=== PATIENT | male | born 1935 ===

== ENCOUNTER 2016-06-16 06:17 | Day surgery (SDC) | payer MEDICARE, OTHER ==
[2016-06-11 11:56] VITALS: BMI 21.6
[2016-06-16] MEDS ORDERED: Iodixanol 320 MG/ML 100 ML BOTTLE IV ONE (06:28)
[2016-06-16] MEDS ORDERED: Lidocaine 2% Inj (20ml) ONE (06:28)
[2016-06-16] MEDS ORDERED: Phenylephrine 10 mg/ml Inj ONE (06:28)
[2016-06-16] MEDS ORDERED: Iohexol 350mgl/ml 50 ML ONE (06:28)
[2016-06-16] MEDS ORDERED: Nitroglycerin 50mg in D5W 0 ML IV ONE (06:29)
[2016-06-16] MEDS ORDERED: Iodixanol 320 MG/ML 200 ML BOTTLE IV ONE (06:29)
[2016-06-16 06:43] LABS: ADD MANUAL DIFF? NO
[2016-06-16 06:57] LABS: BLOOD UREA NITROGEN 23 mg/dL (7-21); CALCIUM 9.6 mg/dL (8.4-10.5); CARBON DIOXIDE 28 mmol/L (21-33); CHLORIDE 105 mmol/L (98-107); GFR AFRICAN-AMERICAN > 60; GLUCOSE,RANDOM 102 mg/dL (70-110); POTASSIUM 4.6 mmol/L (3.6-5.0); SODIUM 142 mmol/L (132-148)
[2016-06-16 07:09] LABS: BASO # 0.02 K/mm3 (0.0-2.0); BASO % 0.3 % (0.0-3.0); EOS # 0.5 (0.0-0.7); EOS % 6.8 % (1.5-5.0); GRAN # 5.46 (1.4-6.5); GRAN % 68.6 % (50.0-68.0); HEMATOCRIT 40.7 % (42.0-52.0); LYMPH # 1.5 (1.2-3.4); LYMPH % 18.9 % (22.0-35.0); MEAN CELL VOLUME 90.4 fL (80.0-105.0); MEAN CORPUSCULAR HGB CONC 33.2 g/dl (31.0-37.0); MEAN PLATELET VOLUME 10.5 fl (7.0-11.0); MONO # 0.4 (0.1-0.6); MONO % 5.4 % (1.0-6.0); PLATELET COUNT 248 10^3/uL (120.0-450.0); RED CELL DISTRIBUTION WIDTH 14.5 % (11.5-14.5)
[2016-06-16 07:19] LABS: INR 0.91 (0.93-1.08); PARTIAL THROMBOPLASTIN TIME 26.7 Seconds (23.7-30.8)
[2016-06-16] MEDS ORDERED: Midazolam 2 MG/2 ML VIAL ONE (07:36)
[2016-06-16] MEDS ORDERED: Adenosine 90 mg/30mL IV ONE (08:15)
[2016-06-16] MEDS ORDERED: Sodium Chloride 0.9% 1,000 ML IV SCH (08:45)
--- NOTE | 2016-06-16 12:01 | CARDCATH ---
PROCEDURE DATE: 06/16/2016 HISTORY: The patient is a 80-year-old male with a history of recurrent small-bowel obstructions terence martha medically, who also suffers from hypertension and diabetes mellitus. The patient has a documented 60% lesion in his RCA in the past. He presents with an abnormal stress test. Because of this, a cardiac catheterization was recommended. PROCEDURE: Left heart catheterization with coronary angiography, left ventriculogram and FFR. The right femoral artery was cannulated with a 6-Turkmen sheath. There were no complications. The findings on catheterization revealed a left ventricle that was mildly hypokinetic. Estimated eje ction fraction is approximately 50%. His coronary anatomy revealed a right dominant circulation. The RCA revealed a 60% stenosis in the mid portion. The left main artery was unremarkable. The LAD and diagonal vessels revealed diffuse atherosclerosis with an eccentric 50% to 60% stenoses i n the mid portion. The circumflex artery revealed intimal irregularities throughout its course. There was an 80% stenos es at the ostium of a branch of the inferior branch of the first obtuse marginal branch. The patient was started on intravenous Angiomax. FFR was performed in the RCA lesion. The FFR was 0.94. No intervention was performed. Angio-Seal was used to close the femoral artery site. The patient tolerated the procedure well. In summary, the procedure revealed borderline critical lesions in the RCA and LAD with an ostial lesi on of the inferior branch of the obtuse marginal branch which is a distal vessel. Given these findings, the patient's coronary artery disease will be treated medically. A cardiac ris k reduction program has been spoken to the patient and his in detail. Followup and instructions have been given to the patient. Enrique Batres MD cc: [facility] TT: 06/16/2016 12:00:58 remington
[2016-06-17 15:57] VITALS: TEMP 97.4
[2016-06-17 16:02] VITALS: BP 139/70; PULSE 64; RESP 18; O2SAT 99
== END 2016-06-16 15:25 | disposition home or self-care (01) ==
LOC: CATH 06:17
PROVIDERS: ATTEND Internal Medicine Cardiovascular Disease
DX: I25.10 Atherosclerotic heart disease of native coronary artery without angina pectoris (principal); I10 Essential (primary) hypertension; E11.9 Type 2 diabetes mellitus without complications; Z79.84 Long term (current) use of oral hypoglycemic drugs
CPT/HCPCS: 36415; 80048; 85025; 85610; 85730; 86850; 86900; 93458; 93571; 99152; 99153; C1760; C1769 ×2; C1887; C2629; J0153; J0583; J1644; J2250; J3010; J7030; J7040

== ENCOUNTER 2016-08-19 06:13 | Observation (INO) | payer MEDICARE, OTHER ==
[2016-08-19] MEDS ORDERED: Morphine 4 mg/ml ISec IVP STA (07:14)
[2016-08-19] MEDS ORDERED: Sodium Chloride 0.9% 500 ML IV STA (07:14)
--- NOTE | 2016-08-19 07:17 | ED PDOC ---
Arrival/HPI - General Chief Complaint: Abdominal Pain Time Seen by Provider: 08/19/16 07:03 Historian: Patient - History of Present Illness Narrative History of Present Illness (Text): 08/19/16 07:05 A 81 year old male, whose past medical history includes multiple small bowel obstructions, appendectomy, and cholecystectomy, presents to the emergency department complaining of corrine-umbilical abdominal pain that began 4 hours ago. Patient notes pain is similar to previous episodes of small bowel obstruction and is associated with nausea and one episode of non bloody non bilious vomiting. He denies any urinary/bowel changes, fever, chest pain, shortness of breath, or any other complaints at this time. PMD: Dr. Cha Time/Duration: 4-6 hours Symptom Onset: Sudden Symptom Course: Unchanged Quality: Other Activities at Onset: Rest Context: Home Associated Symptoms (Text): nausea and vomiting Past Medical History - Provider Review Nursing Documentation Reviewed: Yes - Infectious Disease Hx of Infectious Diseases: None - Tetanus Immunization Tetanus Immunization: Unknown - Reproductive Currently : No - Cardiac Hx Pacemaker: No - Pulmonary Hx Respiratory Disorders: No - Neurological Hx Paralysis: No - HEENT Hx HEENT Disorder: Yes (WEARS RX GLASSES FOR READING) Hx Cataracts: Yes (BILATERAL SURGERY) - Renal Hx Renal Disorder: No - Endocrine/Metabolic Hx Diabetes Mellitus Type 2: Yes - Hematological/Oncological Hx Blood Transfusions: No Hx Blood Transfusion Reaction: No - Integumentary Hx Dermatological Disorder: No - Musculoskeletal/Rheumatological Hx Musculoskeletal Disorders: Yes (SCIATICA) - Gastrointestinal Hx Gastrointestinal Disorders: Yes (APPENDECTOMY(RUPTURED APPENDIX)) Hx Gall Bladder Disease: Yes (CHOLELITHIASIS) Other/Comment: Bowel obstruction - Genitourinary/Gynecological Hx Genitourinary Disorders: Yes Hx Prostate Problems: Yes - Psychiatric Hx Emotional Abuse: No Hx Physical Abuse: No Hx Substance Use: No - Past Surgical History Past Surgical History: No Previous - Surgical History Hx Appendectomy: Yes Hx Cholecystectomy: Yes - Anesthesia Hx Anesthesia Reactions: No Hx Malignant Hyperthermia: No - Suicidal Assessment Feels Threatened In Home Enviroment: No Family/Social History - Physician Review Nursing Documentation Reviewed: Yes Family/Social History: Unknown Family HX Smoking Status: Never Smoked Hx Alcohol Use: Yes (RED WINE AFTER DINNER) Hx Substance Use: No Hx Substance Use Treatment: No Allergies/Home Meds Allergies/Adverse Reactions: Allergies No Known Allergies Allergy (Verified 05/24/16 03:24) Home Medications: Home Meds Medication Instructions Recorded Confirmed Valsartan [Diovan] 40 mg PO DAILY 02/19/16 08/19/16 metFORMIN [glucOPHAGE] 500 mg PO DAILY 02/19/16 08/19/16 Aspirin [Ecotrin] 81 mg PO DAILY 06/11/16 08/19/16 Review of Systems - Review of Systems Constitutional: absent: Fevers ENT: absent: Rhinorrhea Respiratory: absent: SOB, Cough Cardiovascular: absent: Chest Pain Gastrointestinal: Abdominal Pain, Nausea, Vomiting. absent: Stool Changes, Constipation, Diarrhea, Hematochezia Genitourinary Male: absent: Dysuria, Frequency, Hematuria, Urinary Output Changes Musculoskeletal: absent: Back Pain, Neck Pain Skin: absent: Rash Neurological: absent: Headache Endocrine: absent: Polyuria Psychiatric: absent: Depression Physical Exam Vital Signs Reviewed: Yes Vital Signs Temp Pulse Resp BP Pulse Ox 08/19/16 11:20 59 L 16 164/92 H 100 08/19/16 08:30 60 16 160/70 H 97 08/19/16 06:22 97.8 F 61 16 170/78 H 100 Temperature: Afebrile Blood Pressure: Hypertensive Pulse: Regular Respiratory Rate: Normal Appearance: Positive for: Well-Appearing, Non-Toxic, Comfortable Pain Distress: None Mental Status: Positive for: Alert and Oriented X 3 - Systems Exam Head: Present: Atraumatic, Normocephalic Pupils: Present: PERRL Extroacular Muscles: Present: EOMI Conjunctiva: Present: Normal Mouth: Present: Moist Mucous Membranes Neck: Present: Normal Range of Motion Respiratory/Chest: Present: Clear to Auscultation, Good Air Exchange. No: Respiratory Distress, Accessory Muscle Use Cardiovascular: Present: Regular Rate and Rhythm, Normal S1, S2. No: Murmurs Abdomen: Present: Normal Bowel Sounds. No: Tenderness, Distention, Peritoneal Signs, Rebound, Guarding Back: No: CVA Tenderness Upper Extremity: Present: Normal Inspection. No: Cyanosis, Edema Lower Extremity: Present: Normal Inspection. No: Edema Neurological: Present: GCS=15, CN II-XII Intact, Speech Normal Skin: Present: Warm, Dry, Normal Color. No: Rashes Psychiatric: Present: Alert, Oriented x 3, Normal Insight, Normal Concentration Medical Decision Making ED Course and Treatment: 08/19/16 07:05 Impression: A 81 year old male with abdominal pain. Differential Diagnosis include but are not limited to: Small bowel obstruction vs. Pancreatitis vs. Gastritis Plan: -- Abdomen/Pelvis CT -- Labs -- Urinalysis -- Morphine, Zofran and IV Fluids -- Reassess and disposition Prior Visits: Notes and results from previous visits were reviewed. The patient last presented to the emergency department on 05/24/16 for evaluation of abdominal pain. Progress Notes: EKG: Ordered, reviewed, and independently interpreted the EKG. Rate : 61 BPM Rhythm : NSR Interpretation : Normal intervals, No ST/T changes 08/19/16 07:19 08/19/16 12:39 CT as above. Spoke to Dr. Cha. Due to CT results, elevated wbc, and abdominal pain, recommend med/sx observation with for IV antibiotics with GI and ID consult. - Lab Interpretations I have reviewed the lab results: Yes - Medication Orders Current Medication Orders: Ciprofloxacin (Cipro 400mg/200ml Dsw) 400 mg in 200 mls @ 133.3 mls/hr IVPB STAT STA PRN Reason: Protocol Stop: 08/19/16 13:57 Metronidazole (Flagyl) 500 mg in 100 mls @ 100 mls/hr IVPB STAT STA PRN Reason: Protocol Stop: 08/19/16 13:26 Discontinued Medications Sodium Chloride (Sodium Chloride 0.9%) 500 mls @ 999 mls/hr IV .Q31M STA Stop: 08/19/16 07:44 Last Admin: 08/19/16 07:46 Dose: 999 mls/hr Iohexol (Omnipaque 240 (50 Ml)) Confirm Administered Dose 50 ml .ROUTE .STK-MED ONE Stop: 08/19/16 07:28 Iohexol (Omnipaque 350 100 Ml) Confirm Administered Dose 350 mg .ROUTE .STK-MED ONE Stop: 08/19/16 09:12 Morphine Sulfate (Morphine) 4 mg IVP STAT STA Stop: 08/19/16 07:15 Last Admin: 08/19/16 07:47 Dose: 4 mg Re-Assess: JO ANN Pain Assessment Document 08/19/16 08:47 MD (Rec: 08/19/16 09:24 [id number]) Pain Reassessment Is this a pain reassessment? Yes Sleep Is patient sleeping during reassessment? No Presence of Pain Presence of Pain No Ondansetron HCl (Zofran Inj) 4 mg IVP STAT STA Stop: 08/19/16 07:15 Last Admin: 08/19/16 07:47 Dose: 4 mg ED OBSERVATION Date of observation admission: 08/19/16 Time of observation admission: 07:10 - Observation admission statement Patient is being placed in observation because:: abdominal pain, need CT scan - Goals of Observation Goals of observation are:: pain management and obtain series of abdominal examinations - Progress Note Progress Note: 08/19/16 07:10 EKG: Ordered, reviewed, and independently interpreted the EKG. Rate : 61 BPM Rhythm : NSR Interpretation : Normal intervals, No ST/T changes 08/19/16 08:15 On reevaluation, the patient is sitting up in bed drinking contrast. 08/19/16 10:10 On reevaluation, the patient is resting and is in no acute distress at this time. Abdomen remain soft and non tender. 08/19/16 12:00 On reevaluation, the patient is resting comfortably, awaiting CT results. 08/19/16 12:20 Abdomen/Pelvis CT: Creator : Smith Hurt MD COMPARISON: Comparison made with CT scan abdomen and pelvis 05/24/2016 FINDINGS: LOWER THORAX: Atelectatic and scarring changes both lung bases right greater than left including the lingular and middle lobe regions. No effusion. No evidence of basilar pneumothorax. Heart is enlarged. No significant pericardial effusion. Hiatal hernia. Minor wall thickening of the distal esophagus that likely due to protrusion of gastric mucosa. Possibility of esophagitis not excluded. Small LIVER: Mild central intrahepatic biliary ductal dilatation likely due to some combination of cholecystectomy and advanced age. Mild fatty hepatic infiltration. Portal and splenic veins are opacified. GALLBLADDER AND BILE DUCTS: Status post cholecystectomy with moderate dilatation (just over 13 mm) of the common bile duct. CBD dilatation is likely in part due to a combination of cholecystectomy and advanced age however MRCP could be performed for further evaluation as to evaluate the distal common bile duct, Ampulla of Vater and pancreatic head region PANCREAS: There is dilatation of the pancreatic duct . No discrete pancreatic mass lesion is identified however follow-up MRCP is recommended due to evaluate the distal common bile duct, pancreatic head and Ampulla of Vater. SPLEEN: The spleen exhibits normal size and attenuation pattern. There is a tiny approximately 3.5-4 mm nonspecific low-attenuation focus at inferior aspect of the splenic parenchyma too small characterize. . ADRENALS: Mild adrenal hyperplasia. KIDNEYS AND URETERS: The kidneys exhibit relatively symmetric nephrograms. No evidence of nephrolithiasis. Prominent bilateral extrarenal pelves and proximal ureters though both ureters taper rapidly to a normal caliber. BLADDER: Urinary bladder is moderate to significantly distended. Mild wall thickening on may in part be due to muscular hypertrophy. Other intrinsic/ invasive wall lesion less likely. Rule out chronic outlet obstruction due to enlarged prostate gland. REPRODUCTIVE: Prostate gland appears enlarged likely due to benign prostatic hypertrophy however correlation with PSA to exclude prostate carcinoma. . APPENDIX: Appendix is not seen with complete certainty however no obvious inflammatory changes right lower quadrant of the abdomen. There is moderate amount of stool seen throughout the entire colon consistent with fecal retention / constipation. BOWEL: Evaluation of the bowel is limited due to incomplete opacification. The stomach is distended with oral contrast material and air. . . There are nonspecific wall thickening changes of a loop of jejunum right mid abdomen associated mild distension of bone 1 2 loops of proximal small of bowel of uncertain etiology; rule out out localized enteritis. Other intrinsic/invasive wall lesion cannot be excluded. Clinical correlation recommended.. No evidence of complete acute mechanical small bowel obstruction however there as there is a small amount of oral contrast material seen opacifying the proximal cecum. The appendix is not seen with complete certainty. Mild wall thickening of the sigmoid at colon to the level of the rectosigmoid junction which may in part be secondary to underdistention and peristalsis is well as adherent under opacified bowel however possibility of mild nonspecific inflammatory process cannot be excluded. Clinical correlation recommended. PERITONEUM: No evidence of free intraperitoneal air. No free or loculated fluid collections. Air. LYMPH NODES: There appears to be a few small nonspecific retroperitoneal lymph nodes. VASCULATURE: Unremarkable. No aortic aneurysm. BONES: Multilevel degenerative spondylosis of the lower thoracic and lumbar spine. Bilateral spondylolysis L5 level with less than grade 1 spondylolisthesis at the L5-S1 level. . No acute compression fractures no retropulsed fragments. OTHER FINDINGS: None. IMPRESSION: Findings consistent with nonspecific enteritis at involving the the jejunum of with luminal narrowing though there is no evidence of complete obstruction. In addition, there is also mild wall thickening of the sigmoid colon which may in part be secondary to some combination of incomplete distention, as peristalsis and adherent under opacified bowel however nonspecific inflammatory process involving the colon should also be excluded. Mild constipation. Enlarged prostate gland with moderately distended urinary bladder. Rule out bladder outlet obstruction. Correlation with PSA recommended to exclude prostatic carcinoma. Status post cholecystectomy with moderate dilatation of the common bile duct. There is also dilatation of the pancreatic duct. No definitive pancreatic mass lesion seen however followup MRCP is recommended to evaluate the distal common bile duct, pancreatic head and Ampulla of Vater. There is also mild intrahepatic biliary ductal dilatation. Mild fatty hepatic infiltration. Tiny sub cm low-attenuation focus inferior aspect of the splenic parenchyma too small to characterize. Adrenal hyperplasia felt to be present. Bilateral spondylolysis L5 segment with less than grade 1 spondylolisthesis See above discussion for additional findings and details. - Scribe Statement The provider has reviewed the documentation as recorded by the Mercyibe Cruz Pitts Provider Scribe Attestation: All medical record entries made by the Mercyibkelsi were at my direction and personally dictated by me. I have reviewed the chart and agree that the record accurately reflects my personal performance of the history, physical exam, medical decision making, and the department course for this patient. I have also personally directed, reviewed, and agree with the discharge instructions and disposition. Disposition/Present on Arrival - Present on Arrival Any Indicators Present on Arrival: No History of DVT/PE: No History of Uncontrolled Diabetes: No Urinary Catheter: No History of Decub. Ulcer: No History Surgical Site Infection Following: None - Disposition Have Diagnosis and Disposition been Completed?: Yes Diagnosis: Abdominal pain, Enteritis, Colitis Disposition: HOSPITALIZED Disposition Time: 07:10 Patient Plan: Observation Condition: FAIR
[2016-08-19] MEDS ORDERED: Iohexol 240 (50 ml) ONE (07:27)
[2016-08-19 07:49] LABS: VENOUS BLOOD GAS BASE EXCESS 1.1 mmol/L (0.0-2.0); VENOUS BLOOD PH 7.44 (7.32-7.43)
[2016-08-19 07:50] LABS: BASO # 0.01 K/mm3 (0.0-2.0); BASO % 0.1 % (0.0-3.0); EOS # 0.1 (0.0-0.7); EOS % 0.4 % (1.5-5.0); GRAN # 12.78 (1.4-6.5); GRAN % 91.2 % (50.0-68.0); HEMATOCRIT 38.5 % (42.0-52.0); LYMPH # 0.8 (1.2-3.4); LYMPH % 5.9 % (22.0-35.0); MEAN CELL VOLUME 90.8 fL (80.0-105.0); MEAN PLATELET VOLUME 10.6 fl (7.0-11.0); MONO # 0.3 (0.1-0.6); MONO % 2.4 % (1.0-6.0); PLATELET COUNT 219 10^3/uL (120.0-450.0); RED CELL DISTRIBUTION WIDTH 14.3 % (11.5-14.5)
[2016-08-19 07:52] LABS: ADD MANUAL DIFF? NO
[2016-08-19 08:14] LABS: ALB/GLOB RATIO 1.1 (1.1-1.8); ALKALINE PHOSPHATASE 37 U/L (38-133); ALT/SGPT 31 U/L (7-56); AST/SGOT 34 U/L (15-59); BILIRUBIN,TOTAL 0.5 mg/dL (0.2-1.3); BLOOD UREA NITROGEN 29 mg/dL (7-21); CALCIUM 8.7 mg/dL (8.4-10.5); CARBON DIOXIDE 24 mmol/L (21-33); CHLORIDE 109 mmol/L (98-107); GFR AFRICAN-AMERICAN > 60; GLUCOSE,RANDOM 125 mg/dL (70-110); LIPASE 219 U/L (23-300); POTASSIUM 4.4 mmol/L (3.6-5.0); SODIUM 138 mmol/L (132-148); TOTAL PROTEIN 6.6 g/dL (5.8-8.3)
[2016-08-19] MEDS ORDERED: Iohexol 350 MG/100 ML VIAL ONE (09:11)
[2016-08-19 11:42] LABS: URINE BILIRUBIN NEGATIVE (NEGATIVE); URINE BLOOD NEGATIVE (NEGATIVE); URINE GLUCOSE (UA) NEGATIVE (NEGATIVE); URINE KETONE NEGATIVE (NEGATIVE); URINE LEUKOCYTE ESTERASE NEGATIVE Leu/uL (NEGATIVE); URINE PROTEIN 100 mg/dL (<30 mg/dL); URINE UROBILINOGEN 0.2 E.U./dL (<1 E.U./dL)
[2016-08-19 11:47] LABS: URINE APPEARANCE CLEAR (CLEAR); URINE COLOR YELLOW (YELLOW)
[2016-08-19 12:13] LABS: URINE BACTERIA TRACE (NEG); URINE EPITHELIAL CELLS 0 - 2 /hpf (0-5); URINE RBC 0 - 2 /hpf (0-2); URINE WBC 0 - 2 /hpf (0-6)
--- NOTE | 2016-08-19 12:20 | CT ---
PROCEDURE: CT abdomen and pelvis dated 08/19/2016 HISTORY: abdominal pain, hx of SBO COMPARISON: Comparison made with CT scan abdomen and pelvis 05/24/2016 TECHNIQUE: Contiguous axial images of the abdomen and pe pelvis performed following oral and intravenous injection of approximately 100 cc of Omnipaque 350 contrast material. Coronal and Sagittal reformats generated. Radiation dose: Total exam DLP = 247.81 mGy-cm. This CT exam was performed using one or more of the following dose reduction techniques: Automated exposure control, adjustment of the mA and/or kV according to patient size, and/or use of iterative reconstruction technique. FINDINGS: LOWER THORAX: Atelectatic and scarring changes both lung bases right greater than left including the lingular and middle lobe regions. No effusion. No evidence of basilar pneumothorax. Heart is enlarged. No significant pericardial effusion. Hiatal hernia. Minor wall thickening of the distal esophagus that likely due to protrusion of gastric mucosa. Possibility of esophagitis not excluded. Small LIVER: Mild central intrahepatic biliary ductal dilatation likely due to some combination of cholecystectomy and advanced age. Mild fatty hepatic infiltration. Portal and splenic veins are opacified. GALLBLADDER AND BILE DUCTS: Status post cholecystectomy with moderate dilatation (just over 13 mm) of the common bile duct. CBD dilatation is likely in part due to a combination of cholecystectomy and advanced age however MRCP could be performed for further evaluation as to evaluate the distal common bile duct, Ampulla of Vater and pancreatic head region PANCREAS: There is dilatation of the pancreatic duct . No discrete pancreatic mass lesion is identified however follow-up MRCP is recommended due to evaluate the distal common bile duct, pancreatic head and Ampulla of Vater. SPLEEN: The spleen exhibits normal size and attenuation pattern. There is a tiny approximately 3.5-4 mm nonspecific low-attenuation focus at inferior aspect of the splenic parenchyma too small characterize. . ADRENALS: Mild adrenal hyperplasia. KIDNEYS AND URETERS: The kidneys exhibit relatively symmetric nephrograms. No evidence of nephrolithiasis. Prominent bilateral extrarenal pelves and proximal ureters though both ureters taper rapidly to a normal caliber. BLADDER: Urinary bladder is moderate to significantly distended. Mild wall thickening on may in part be due to muscular hypertrophy. Other intrinsic/invasive wall lesion less likely. Rule out chronic outlet obstruction due to enlarged prostate gland. REPRODUCTIVE: Prostate gland appears enlarged likely due to benign prostatic hypertrophy however correlation with PSA to exclude prostate carcinoma. . APPENDIX: Appendix is not seen with complete certainty however no obvious inflammatory changes right lower quadrant of the abdomen. There is moderate amount of stool seen throughout the entire colon consistent with fecal retention/ constipation. BOWEL: Evaluation of the bowel is limited due to incomplete opacification. The stomach is distended with oral contrast material and air. . . There are nonspecific wall thickening changes of a loop of jejunum right mid abdomen associated mild distension of bone 1 2 loops of proximal small of bowel of uncertain etiology; rule out out localized enteritis. Other intrinsic/invasive wall lesion cannot be excluded. Clinical correlation recommended.. No evidence of complete acute mechanical small bowel obstruction however there as there is a small amount of oral contrast material seen opacifying the proximal cecum. The appendix is not seen with complete certainty. Mild wall thickening of the sigmoid at colon to the level of the rectosigmoid junction which may in part be secondary to underdistention and peristalsis is well as adherent under opacified bowel however possibility of mild nonspecific inflammatory process cannot be excluded. Clinical correlation recommended. PERITONEUM: No evidence of free intraperitoneal air. No free or loculated fluid collections. Air. LYMPH NODES: There appears to be a few small nonspecific retroperitoneal lymph nodes. VASCULATURE: Unremarkable. No aortic aneurysm. BONES: Multilevel degenerative spondylosis of the lower thoracic and lumbar spine. Bilateral spondylolysis L5 level with less than grade 1 spondylolisthesis at the L5-S1 level. . No acute compression fractures no retropulsed fragments. OTHER FINDINGS: None. IMPRESSION: Findings consistent with nonspecific enteritis at involving the the jejunum of with luminal narrowing though there is no evidence of complete obstruction. In addition, there is also mild wall thickening of the sigmoid colon which may in part be secondary to some combination of incomplete distention, as peristalsis and adherent under opacified bowel however nonspecific inflammatory process involving the colon should also be excluded. Mild constipation. Enlarged prostate gland with moderately distended urinary bladder. Rule out bladder outlet obstruction. Correlation with PSA recommended to exclude prostatic carcinoma. Status post cholecystectomy with moderate dilatation of the common bile duct. There is also dilatation of the pancreatic duct. No definitive pancreatic mass lesion seen however followup MRCP is recommended to evaluate the distal common bile duct, pancreatic head and Ampulla of Vater. There is also mild intrahepatic biliary ductal dilatation. Mild fatty hepatic infiltration. Tiny sub cm low-attenuation focus inferior aspect of the splenic parenchyma too small to characterize. Adrenal hyperplasia felt to be present. Bilateral spondylolysis L5 segment with less than grade 1 spondylolisthesis See above discussion for additional findings and details.
[2016-08-19] MEDS ORDERED: metroNIDAZOLE IV 500 mg/100 ml 500 MG/100 ML BAG IVPB STA (12:27)
[2016-08-19] MEDS ORDERED: Ciprofloxacin 400mg/200ml D5W 400 MG/200 ML BAG IVPB STA (12:27)
[2016-08-19] MEDS: Sodium Chloride 0.45% 1,000 ML IV SCH (14:07)
--- NOTE | 2016-08-19 15:44 | CP.PCM.CON ---
<Kendall Soares - Last Filed: 08/20/16 12:12> History of Present Illness - History of Present Illness History of Present Illness: PGY4 GI Fellow Consult Note Patient is a 81yo male with PMHx significant for multiple SBO, TIA, CAD (RCA 60 % stenotic on medical management), GERD, DM, HTN who presented to the ED with one day of abdominal pain. The patient has a history of multiple small bowel obstructions over the past two years, treated coservatively as he has been deemed a poor surgical candidate due to his CAD. Patient states he first noticed diffuse/corrine-umbilical cramping abdominal pain last night. He was able to sleep through the evening and went to work this morning without issue. At work, pain intensified and he called his to pick him up and bring him to the ED as he was concerned for recurrent SBO. He denies any change in bowel habits and passed a normal BM yesterday. Passing flatus at present. Denies any nausea, vomiting, weight loss, hematochezia, melena. PMHx: See HPI PSHx: Appendectomy, cholecystectomy FHx: Discussed with patient and denies any significant family history Social: Denies tobacco or illicit drug use; 1 glass red wine daily Endo: No prior evaluations Review of Systems - Constitutional Constitutional: absent: Anorexia, Chills, Fever - EENT Eyes: absent: Change in Vision Nose/Mouth/Throat: absent: Sore Throat - Cardiovascular Cardiovascular: absent: Chest Pain, Dyspnea, Dyspnea on Exertion - Respiratory Respiratory: absent: Cough, Dyspnea, Excessive Mucous Production - Gastrointestinal Gastrointestinal: Abdominal Pain, Bloating, Cramping. absent: Constipation, Diarrhea, Dyspepsia, Early Satiety, Heartburn, Hematemesis, Hematochezia, Loose Stools, Melena, Nausea, Vomiting - Genitourinary Genitourinary: absent: Dysuria, Urinary Frequency, Urinary Urgency - Musculoskeletal Musculoskeletal: absent: Back Pain, Neck Pain - Integumentary Integumentary: absent: New Lesions, Rash - Neurological Neurological: absent: Dizziness, Numbness, Focal Weakness - Psychiatric Psychiatric: absent: Anxiety, Depression - Endocrine Endocrine: absent: Polydipsia, Polyphagia, Polyuria - Hematologic/Lymphatic Hematologic: absent: Easy Bleeding, Easy Bruising, Lymphadenopathy Past Patient History - Infectious Disease Hx of Infectious Diseases: None - Tetanus Immunizations Tetanus Immunization: Unknown - Past Social History Smoking Status: Never Smoked - CARDIAC Hx Pacemaker: No - PULMONARY Hx Respiratory Disorders: No - NEUROLOGICAL Hx Paralysis: No - HEENT Hx HEENT Problems: Yes (WEARS RX GLASSES FOR READING) Hx Cataracts: Yes (BILATERAL SURGERY) - RENAL Hx Chronic Kidney Disease: No - ENDOCRINE/METABOLIC Hx Diabetes Mellitus Type 2: Yes - HEMATOLOGICAL/ONCOLOGICAL Hx Blood Transfusions: No Hx Blood Transfusion Reaction: No - INTEGUMENTARY Hx Dermatological Problems: No - MUSCULOSKELETAL/RHEUMATOLOGICAL Hx Musculoskeletal Disorders: Yes (SCIATICA) - GASTROINTESTINAL Hx Gastrointestinal Disorders: Yes (APPENDECTOMY(RUPTURED APPENDIX)) Hx Gall Bladder Disease: Yes (CHOLELITHIASIS) Other/Comment: Bowel obstruction - GENITOURINARY/GYNECOLOGICAL Hx Genitourinary Disorders: Yes Hx Prostate Problems: Yes - PSYCHIATRIC Hx Emotional Abuse: No Hx Physical Abuse: No Hx Substance Use: No - SURGICAL HISTORY Hx Appendectomy: Yes Hx Cholecystectomy: Yes - ANESTHESIA Hx Anesthesia Reactions: No Hx Malignant Hyperthermia: No Meds Allergies/Adverse Reactions: Allergies Allergy/AdvReac Type Severity Reaction Status Date / Time No Known Allergies Allergy Verified 05/24/16 03:24 - Medications Medications: Current Medications Aspirin (Ecotrin) 81 mg PO DAILY [facility] Sodium Chloride (Sodium Chloride 0.45%) 1,000 mls @ 60 mls/hr IV .[id number] [facility] Last Admin: 08/19/16 14:07 Dose: 60 mls/hr Insulin Human Regular (Humulin R Med) 0 units SC ACHS [facility] PRN Reason: Protocol Losartan Potassium (Cozaar) 25 mg PO DAILY [facility] Physical Exam - Constitutional Appears: Non-toxic, No Acute Distress - Eye Exam Eye Exam: EOMI, PERRL - ENT Exam ENT Exam: Mucous Membranes Moist - Respiratory Exam Respiratory Exam: Clear to Auscultation Bilateral. absent: Rales, Rhonchi, Wheezes - Cardiovascular Exam Cardiovascular Exam: REGULAR RHYTHM, RRR, +S1, +S2 - GI/Abdominal Exam GI & Abdominal Exam: Normal Bowel Sounds, Soft. absent: Distended, Firm, Guarding, Organomegaly, Rigid, Tenderness - Extremities Exam Extremities exam: Positive for: normal inspection. Negative for: pedal edema - Neurological Exam Neurological exam: Alert, Oriented x3 - Psychiatric Exam Psychiatric exam: Normal Affect, Normal Mood - Skin Skin Exam: Dry, Warm Results - Vital Signs Recent Vital Signs: Last Vital Signs Temp 97.8 F 08/19/16 06:22 Pulse 54 L 08/19/16 13:53 Resp 16 08/19/16 13:53 BP 154/88 H 08/19/16 13:53 Pulse Ox 100 08/19/16 13:53 - Labs Result Diagrams: 08/20/16 07:30 08/20/16 07:30 Labs: Laboratory Results - last 24 hr 08/19/16 08/19/16 08/19/16 07:15 07:15 08:00 WBC 14.0 H D RBC 4.24 Hgb 12.7 L Hct 38.5 L MCV 90.8 MCH 30.0 MCHC 33.0 RDW 14.3 Plt Count 219 MPV 10.6 Gran % 91.2 H Lymph % (Auto) 5.9 L [place] % (Auto) 2.4 Eos % (Auto) 0.4 L Baso % (Auto) 0.1 Gran # 12.78 H Lymph # 0.8 L [place] # 0.3 Eos # 0.1 Baso # 0.01 pO2 198 H VBG pH 7.44 H VBG pCO2 37.0 L VBG HCO3 25.1 VBG Total CO2 26.2 VBG O2 Sat (Calc) 99.5 H VBG Base Excess 1.1 VBG Potassium 5.5 H Sodium 139.0 138 Chloride 109.0 H 109 H Glucose 147 H Lactate 1.1 FiO2 21.0 Potassium 4.4 Carbon Dioxide 24 Anion Gap 9 L BUN 29 H Creatinine 1.3 Est GFR ( Amer) > 60 Est GFR (Non-Af Amer) 53 Random Glucose 125 H Calcium 8.7 Total Bilirubin 0.5 AST 34 ALT 31 Alkaline Phosphatase 37 L Total Protein 6.6 Albumin 3.5 Globulin 3.1 Albumin/Globulin Ratio 1.1 Lipase 219 Venous Blood Potassium 5.5 H Urine Color Urine Appearance Urine pH Ur Specific [place] Urine Protein Urine Glucose (UA) Urine Ketones Urine Blood Urine Nitrate Urine Bilirubin Urine Urobilinogen Ur Leukocyte Esterase Urine RBC Urine WBC Ur Epithelial Cells Urine Bacteria 08/19/16 11:30 WBC RBC Hgb Hct MCV MCH MCHC RDW Plt Count MPV Gran % Lymph % (Auto) [place] % (Auto) Eos % (Auto) Baso % (Auto) Gran # Lymph # [place] # Eos # Baso # pO2 VBG pH VBG pCO2 VBG HCO3 VBG Total CO2 VBG O2 Sat (Calc) VBG Base Excess VBG Potassium Sodium Chloride Glucose Lactate FiO2 Potassium Carbon Dioxide Anion Gap BUN Creatinine Est GFR ( Amer) Est GFR (Non-Af Amer) Random Glucose Calcium Total Bilirubin AST ALT Alkaline Phosphatase Total Protein Albumin Globulin Albumin/Globulin Ratio Lipase Venous Blood Potassium Urine Color Yellow Urine Appearance Clear Urine pH 7.0 Ur Specific [place] 1.015 Urine Protein 100 H Urine Glucose (UA) Negative Urine Ketones Negative Urine Blood Negative Urine Nitrate Negative Urine Bilirubin Negative Urine Urobilinogen 0.2 Ur Leukocyte Esterase Negative Urine RBC 0 - 2 Urine WBC 0 - 2 Ur Epithelial Cells 0 - 2 Urine Bacteria Trace Assessment & Plan - Assessment and Plan (Free Text) Assessment: Patient is a 81yo male with PMHx significant for multiple SBO, TIA, CAD (RCA 60 % stenotic on medical management), GERD, DM, HTN who presented to the ED with one day of abdominal pain. -Abdominal pain -Abnormal noncontrast CT scan of the abdomen - questionable enteritis/colitis -Dilated CBD/PD on CT scan -CAD Plan: -Advance to liquid diet as pain has resolved, continue to advance as tolerated -Cipro/Flagyl given in the ED, agree with continuing for now given questionable colitis -If pain persists/worsens, would recommend CT A/P with PO/IV contrast -Check MRCP given double duct sign on CT (CBD/PD dilation) -Serial abdominal examinations -Patient will require outpatient colonoscopy - Date & Time Date: 08/19/16 Time: 15:30 <Clint Kyle - Last Filed: 08/20/16 13:24> Meds - Medications Medications: Current Medications Aspirin (Ecotrin) 81 mg PO DAILY [facility] Last Admin: 08/20/16 11:20 Dose: 81 mg Sodium Chloride (Sodium Chloride 0.45%) 1,000 mls @ 60 mls/hr IV .[id number] [facility] Last Admin: 08/19/16 14:07 Dose: 60 mls/hr Piperacillin Sod/Tazobactam Sod (Zosyn 3.375 In Ns 100ml) 100 mls @ 200 mls/hr IVPB Q6 [facility] PRN Reason: Protocol Stop: 08/26/16 18:01 Last Admin: 06/01/17 13:09 Dose: 200 mls/hr Insulin Human Regular (Humulin R Med) 0 units SC ACHS [facility] PRN Reason: Protocol Last Admin: 08/20/16 13:09 Dose: Not Given Losartan Potassium (Cozaar) 25 mg PO DAILY [facility] Last Admin: 08/20/16 11:19 Dose: 25 mg Morphine Sulfate (Morphine) 4 mg IVP Q4H PRN PRN Reason: Pain, moderate (4-7) Polyethylene Glycol (Miralax) 17 gm PO DAILY [facility] Last Admin: 08/20/16 11:20 Dose: 17 gm Results - Vital Signs Recent Vital Signs: Last Vital Signs Temp 98.2 F 08/20/16 08:20 Pulse 60 08/20/16 11:19 Resp 20 08/20/16 08:20 BP 134/71 08/20/16 11:19 Pulse Ox 99 08/20/16 08:20 - Labs Result Diagrams: 08/20/16 07:30 08/20/16 07:30 Labs: Laboratory Results - last 24 hr 08/20/16 08/20/16 08/20/16 07:30 07:30 11:04 WBC 6.1 D RBC 4.20 Hgb 12.6 L Hct 38.7 L MCV 92.1 MCH 30.0 MCHC 32.6 RDW 13.9 Plt Count 198 MPV 10.9 Sodium 140 Potassium 4.0 Chloride 109 H Carbon Dioxide 25 Anion Gap 10 BUN 15 Creatinine 1.2 Est GFR ( Amer) > 60 Est GFR (Non-Af Amer) 58 POC Glucose (mg/dL) 87 Random Glucose 90 Calcium 8.5 Total Bilirubin 1.1 AST 63 H ALT 69 H Alkaline Phosphatase 48 Total Protein 6.2 Albumin 3.2 Globulin 3.0 Albumin/Globulin Ratio 1.1 Attending/Attestation - Attestation I have personally seen and examined this patient.: Yes I have fully participated in the care of the patient.: Yes I have reviewed all pertinent clinical information: Yes Notes (Text): Patient seen and examined with GI fellow. Agree with his note as documented above with the following additions/exceptions. This is a 81yo male with h/o recurrent small bowel obstruction, CAD, GERD, DM, HTN who is admitted with abdominal pain associated with nausea/vomiting. CT scan on admission showed prominent small bowel loops with enteritis. His CBD/PD were prominent. He reports complete resolution of pain this morning with no further vomiting episodes. He is passing flatus. Will obtain MRCP for evaluation of prominent bile duct. Continue conservative management with pain control/antiemetic therapy as needed. Trial of clear liquids. The patient would benefit from elective colonoscopy as outpatient. 08/20/16 13:23
[2016-08-19] MEDS: Insulin Reg-MEDIUM-Coverage SC SCH ×2 (16:30→22:00)
[2016-08-19 16:57] VITALS: BMI 22.1
[2016-08-19] MEDS: Piperacillin/Tazobact 3.375 gm 100 ML IVPB SCH ×2 (17:41→23:29)
[2016-08-19] MEDS ORDERED: Dextrose 50% SYRINGE Inj (50 ml) IVP STA (21:20)
--- NOTE | 2016-08-19 21:21 | CP.PCM.PN ---
Subjective - Date & Time of Evaluation Date of Evaluation: 08/19/16 Time of Evaluation: 21:21 - Subjective Subjective: S:Nurse Emilia called with Finger Stick Blood Glucose reading of 61 mg%. Patient was asymptomatic. Medical record was reviewed. Half ampoule of Dextrose 50 % was ordered to be administered. When I came to see patient he was sleeping. O: Last Vital Signs 3 Temp 97.9 F 08/19/16 16:00 Pulse 57 L 08/19/16 16:00 Resp 17 08/19/16 16:46 BP 133/75 08/19/16 16:00 Pulse Ox 96 08/19/16 16:00 Stable, not in distress. LUNGS:Normal breathing pattern. A:Hypoglycemia. P:Dextrose 50 % 25 mg IV x 1. Repeat finger stick blood glucose was 82 mg %. Objective - Vital Signs/Intake and Output Vital Signs (last 24 hours): Temp Pulse Resp BP Pulse Ox 97.9 F 57 L 17 133/75 96 08/19/16 16:00 08/19/16 16:00 08/19/16 16:46 08/19/16 16:00 08/19/16 16:00 - Medications Medications: Current Medications Aspirin (Ecotrin) 81 mg PO DAILY [facility] Sodium Chloride (Sodium Chloride 0.45%) 1,000 mls @ 60 mls/hr IV .[id number] [facility] Last Admin: 08/19/16 14:07 Dose: 60 mls/hr Piperacillin Sod/Tazobactam Sod (Zosyn 3.375 In Ns 100ml) 100 mls @ 200 mls/hr IVPB Q6 [facility] PRN Reason: Protocol Stop: 08/26/16 18:01 Last Admin: 08/19/16 17:41 Dose: 200 mls/hr Insulin Human Regular (Humulin R Med) 0 units SC ACHS [facility] PRN Reason: Protocol Last Admin: 08/19/16 16:30 Dose: Not Given Losartan Potassium (Cozaar) 25 mg PO DAILY [facility] - Labs Labs: 08/19/16 07:15 08/19/16 08:00
--- NOTE | 2016-08-19 22:30 | CARD ---
APPROVED REPORT EKG Measurement Heart [id number] <Conclusion> Normal sinus rhythm Normal ECG
[2016-08-20] MEDS: Piperacillin/Tazobact 3.375 gm 100 ML IVPB SCH ×4 (05:33→23:52)
[2016-08-20] MEDS ORDERED: Morphine 4 mg/ml ISec IVP PRN (05:48)
--- NOTE | 2016-08-20 08:07 | HP ---
I saw him in the Emergency Room on 08/19/16 and I discussed this with the ER doctor and his at length and the patient. I was unable to dictate because , at home, my computer did not work and now it is early in the morning. I am dictating my 08/19 history and physical. He is a 81-year-old man who I know very well from multiple small bowel obstructions who has had an appendectomy, cholecystectomy in the past. He complains of 4 hours of abdominal pain. They felt it was similar to the other episode. He had nauseousness, nonbloody throwing up. He is comfortable otherwise. They understand it could be a small bowel obstruction. He comes in. He has a CAT scan that shows enteritis-type picture. PAST MEDICAL HISTORY: He has bilateral surgery of cataracts, type 2 diabetes, sciatica, appendectomy, cholelithiasis, cholecystectomy. He has multiple small bowel obstructions. Prostate enlargement. FAMILY HISTORY: There is hypertension in the family. SOCIAL HISTORY: He never smoked. He does drink red wine after dinner and no substance abuse. ALLERGIES: No known drug allergies. MEDICATIONS: He is on Diovan for hypertension, metformin for the diabetes and Ecotrin. REVIEW OF SYSTEMS: No changes in vision or change in hearing. No headache, no dizziness, no chest pain or palpitations. No shortness breath, no coughing or mucus. He does have abdominal pain. There is nausea and vomiting. He is moving his bowels. It is a similar type of pain, but thank God, it is not a small-bowel obstruction again. No changes in urination. Skin for the most part is intact. No headache, no dizziness, no problems urinating. depressed and anxiety. PHYSICAL EXAMINATION: VITAL SIGNS: He has a 97.8 temp, 50 pulse, 15 respiratory rate, 150/78 blood pressure, 100% O2 sat on room air. GENERAL: He is well appearing at this time, comfortable,, alert and oriented x 3. HEENT: Head is atraumatic, normocephalic. Extraocular muscles are intact. Pupils equal, reactive to light and accommodation. Throat is dry. NECK: Supple. HEART: Regular rate. Normal S1, S2, LUNGS: Clear to auscultation with poor inspiration. Decreased breath sounds, but no wheezes, rhonchi or rales. ABDOMEN: Decreased bowel sounds at this time, mildly distended. Positive tenderness all over, but no guarding, no rebound, no CVA tenderness. EXTREMITIES: Have no edema. NEUROLOGIC: He can move all 4 extremities . GCS is 15. Cranial nerves II-XII grossly intact. SKIN: Warm, dry and intact. Alert and oriented x 3. Thyroid is midline. No palpable appreciated lymphadenopathy. LABORATORY DATA: He had multiple tests. He has a 138 sodium, potassium 4.4, BUN 29, creatinine 1.3, GFR is 53, sugar is 125, calcium is 8.7, total bili is 0.5, AST is 34, ALT is 31, alk phos is 37, total protein 6.6, albumin 3.5, globulin 3.1, lipase is 219. He had a 198 pO2, 7.44 pH. White count: There is a 14 white count, 12.7 hemoglobin, 38.5 hematocrit with 219 platelets. Urine is clean. He did have a CAT scan in the ER that showed findings consistent with enteritis in the jejunum, luminal narrowing. No evidence of complete obstruction, mild wall thickening in the sigmoid colon, incomplete distention, nonspecific inflammatory process of the colon, mild constipation, enlarged prostate, possible bladder outlet obstruction. They recommend a PSA. There is dilatation of the pancreatic duct, no pancreatic mass, adrenal hyperplasia, bilateral spondylosis. He will have consults with gastroenterology and infectious disease. He will be on IV antibiotics, Cozaar, Ecotrin, insulin, IV fluids, Zosyn. He will have morphine for pain. He should have been made an inpatient. I discussed that when I left the Emergency Room yesterday. I will change him to an inpatient. He is n.p.o. He is here for enteritis, colitis IV antibiotics, IV fluids, pain meds. Phill Cha DO cc: [id number] TT: 08/20/2016 08:04:05 roderick 08/20/2016 07:05:40 WILLIE
[2016-08-20 08:21] VITALS: RESP 20
[2016-08-20 08:30] LABS: HEMATOCRIT 38.7 % (42.0-52.0); MEAN CELL VOLUME 92.1 fL (80.0-105.0); MEAN CORPUSCULAR HGB CONC 32.6 g/dl (31.0-37.0); MEAN PLATELET VOLUME 10.9 fl (7.0-11.0); RED CELL DISTRIBUTION WIDTH 13.9 % (11.5-14.5); WHITE BLOOD COUNT 6.1 10^3/ul (4.5-11.0)
[2016-08-20 08:38] LABS: ALB/GLOB RATIO 1.1 (1.1-1.8); ALKALINE PHOSPHATASE 48 U/L (38-133); ALT/SGPT 69 U/L (7-56); AST/SGOT 63 U/L (15-59); BILIRUBIN,TOTAL 1.1 mg/dL (0.2-1.3); BLOOD UREA NITROGEN 15 mg/dL (7-21); CALCIUM 8.5 mg/dL (8.4-10.5); CARBON DIOXIDE 25 mmol/L (21-33); CHLORIDE 109 mmol/L (98-107); GFR AFRICAN-AMERICAN > 60; GLUCOSE,RANDOM 90 mg/dL (70-110); SODIUM 140 mmol/L (132-148); TOTAL PROTEIN 6.2 g/dL (5.8-8.3)
--- NOTE | 2016-08-20 08:55 | PN ---
DATE: 08/20/2016 I saw him yesterday in the Emergency Room. He is here this morning. He is feeling better. He is in better spirits. He says his pain is gone in his abdomen. He does not feel nauseous or vomiting. He is on IV fluids and IV antibiotics. He is on Cozaar, Ecotrin, insulin, MiraLax, morphine, IV fluids, and Zosyn. PHYSICAL EXAMINATION: VITAL SIGNS: Temp 98.2, 53 pulse, 134/71 blood pressure, 20 respiratory rate, 99% O2 sat on room air. HEAD: Atraumatic, normocephalic. NEUROLOGIC: Alert and oriented x 3. Mouth is moist. NECK: Supple. HEART: Regular rate. LUNGS: Clear to auscultation. ABDOMEN: Soft, nontender, positive bowel sounds. EXTREMITIES: No edema. LABORATORY DATA: He has a 6.1 white count, much better than 14 when he came in , 12.6 hemoglobin, 38.7 hematocrit, 198 platelets. Sodium 140. Potassium is 4. BUN is 15, creatinine 1.2. GFR is 58. Sugar is 90. Calcium is 8.5. Total bili is 1.1. AST is ALT is 69. Alk phos is 48. Total protein is 6.2. Albumin is 3.2. Globulin is 3. His liver enzymes went up a little bit. Urine is clean. He is being seen by GI. He is here for enteritis, colitis. We will check his labs. Discuss with GI. Continue with the treatment. If they want to increase him to clears, we will see how he does later, probably he will need one more day. Continue with the IV antibiotics. Phill Cha DO cc: [id number] TT: 08/20/2016 08:54:15 Confirmation # [id number] Dictation # [id number] MTDD
[2016-08-20] MEDS: Insulin Reg-MEDIUM-Coverage SC SCH ×4 (09:57→22:00)
[2016-08-20] MEDS: POLYETHYLENE GLYCOL 3350 17 GM/Dose PACKET PO SCH (11:20)
--- NOTE | 2016-08-20 11:38 | CP.PCM.CON ---
History of Present Illness - History of Present Illness History of Present Illness: 81 year old male with PMH of multiple episodes of small bowel obstruction, TIA, CAD, GERD, DM, HTN, S/P appendectomy, S/P cholecystectomy came in because of sudden onset abdominal pain and bloating yesterday with some nausea but no vomiting. For a time the patient was also not passing gas. He denies fever or chills, no nausea or vomiting, no chest pain, no SOB, no dysuria, no diarrhea, no cough or colds. In the ED, CT abdomen and pelvis shows possible enteritis and colitis. Infectious Diseases consult is requested to further evaluate and manage. Currently the patient is feeling better, not in distress, no fevers, passing gas, no abdominal pain currently. Review of Systems - Review of Systems All systems: reviewed and no additional remarkable complaints except (as per HPI ) Past Patient History - Infectious Disease Hx of Infectious Diseases: None - Tetanus Immunizations Tetanus Immunization: Unknown - Past Social History Smoking Status: Never Smoked - CARDIAC Hx Pacemaker: No - PULMONARY Hx Respiratory Disorders: No - NEUROLOGICAL Hx Paralysis: No - HEENT Hx HEENT Problems: Yes (WEARS RX GLASSES FOR READING) Hx Cataracts: Yes (BILATERAL SURGERY) - RENAL Hx Chronic Kidney Disease: No - ENDOCRINE/METABOLIC Hx Diabetes Mellitus Type 2: Yes - HEMATOLOGICAL/ONCOLOGICAL Hx Blood Transfusions: No Hx Blood Transfusion Reaction: No - INTEGUMENTARY Hx Dermatological Problems: No - MUSCULOSKELETAL/RHEUMATOLOGICAL Hx Musculoskeletal Disorders: Yes (SCIATICA) - GASTROINTESTINAL Hx Gastrointestinal Disorders: Yes (APPENDECTOMY(RUPTURED APPENDIX)) Hx Gall Bladder Disease: Yes (CHOLELITHIASIS) Other/Comment: Bowel obstruction - GENITOURINARY/GYNECOLOGICAL Hx Genitourinary Disorders: Yes Hx Prostate Problems: Yes - PSYCHIATRIC Hx Emotional Abuse: No Hx Physical Abuse: No Hx Substance Use: No - SURGICAL HISTORY Hx Appendectomy: Yes Hx Cholecystectomy: Yes - ANESTHESIA Hx Anesthesia Reactions: No Hx Malignant Hyperthermia: No Meds Allergies/Adverse Reactions: Allergies Allergy/AdvReac Type Severity Reaction Status Date / Time No Known Allergies Allergy Verified 05/24/16 03:24 - Medications Medications: Current Medications Aspirin (Ecotrin) 81 mg PO DAILY [facility] Sodium Chloride (Sodium Chloride 0.45%) 1,000 mls @ 60 mls/hr IV .[id number] [facility] Last Admin: 08/19/16 14:07 Dose: 60 mls/hr Insulin Human Regular (Humulin R Med) 0 units SC ACHS [facility] PRN Reason: Protocol Losartan Potassium (Cozaar) 25 mg PO DAILY [facility] Physical Exam - Constitutional Appears: Non-toxic, No Acute Distress - Head Exam Head Exam: NORMAL INSPECTION - ENT Exam ENT Exam: Mucous Membranes Moist - Neck Exam Neck exam: Negative for: Lymphadenopathy, Meningismus - Respiratory Exam Respiratory Exam: Decreased Breath Sounds - Cardiovascular Exam Cardiovascular Exam: +S1, +S2 - GI/Abdominal Exam GI & Abdominal Exam: Soft. absent: Tenderness Results - Vital Signs Recent Vital Signs: Last Vital Signs Temp 97.8 F 08/19/16 06:22 Pulse 54 L 08/19/16 13:53 Resp 16 08/19/16 13:53 BP 154/88 H 08/19/16 13:53 Pulse Ox 100 08/19/16 13:53 - Labs Result Diagrams: 08/20/16 07:30 08/20/16 07:30 Labs: Laboratory Results - last 24 hr 08/19/16 08/19/16 08/19/16 07:15 07:15 08:00 WBC 14.0 H D RBC 4.24 Hgb 12.7 L Hct 38.5 L MCV 90.8 MCH 30.0 MCHC 33.0 RDW 14.3 Plt Count 219 MPV 10.6 Gran % 91.2 H Lymph % (Auto) 5.9 L [place] % (Auto) 2.4 Eos % (Auto) 0.4 L Baso % (Auto) 0.1 Gran # 12.78 H Lymph # 0.8 L [place] # 0.3 Eos # 0.1 Baso # 0.01 pO2 198 H VBG pH 7.44 H VBG pCO2 37.0 L VBG HCO3 25.1 VBG Total CO2 26.2 VBG O2 Sat (Calc) 99.5 H VBG Base Excess 1.1 VBG Potassium 5.5 H Sodium 139.0 138 Chloride 109.0 H 109 H Glucose 147 H Lactate 1.1 FiO2 21.0 Potassium 4.4 Carbon Dioxide 24 Anion Gap 9 L BUN 29 H Creatinine 1.3 Est GFR ( Amer) > 60 Est GFR (Non-Af Amer) 53 POC Glucose (mg/dL) Random Glucose 125 H Calcium 8.7 Total Bilirubin 0.5 AST 34 ALT 31 Alkaline Phosphatase 37 L Total Protein 6.6 Albumin 3.5 Globulin 3.1 Albumin/Globulin Ratio 1.1 Lipase 219 Venous Blood Potassium 5.5 H Urine Color Urine Appearance Urine pH Ur Specific [place] Urine Protein Urine Glucose (UA) Urine Ketones Urine Blood Urine Nitrate Urine Bilirubin Urine Urobilinogen Ur Leukocyte Esterase Urine RBC Urine WBC Ur Epithelial Cells Urine Bacteria 08/19/16 08/19/16 11:30 16:14 WBC RBC Hgb Hct MCV MCH MCHC RDW Plt Count MPV Gran % Lymph % (Auto) [place] % (Auto) Eos % (Auto) Baso % (Auto) Gran # Lymph # [place] # Eos # Baso # pO2 VBG pH VBG pCO2 VBG HCO3 VBG Total CO2 VBG O2 Sat (Calc) VBG Base Excess VBG Potassium Sodium Chloride Glucose Lactate FiO2 Potassium Carbon Dioxide Anion Gap BUN Creatinine Est GFR ( Amer) Est GFR (Non-Af Amer) POC Glucose (mg/dL) 111 H Random Glucose Calcium Total Bilirubin AST ALT Alkaline Phosphatase Total Protein Albumin Globulin Albumin/Globulin Ratio Lipase Venous Blood Potassium Urine Color Yellow Urine Appearance Clear Urine pH 7.0 Ur Specific [place] 1.015 Urine Protein 100 H Urine Glucose (UA) Negative Urine Ketones Negative Urine Blood Negative Urine Nitrate Negative Urine Bilirubin Negative Urine Urobilinogen 0.2 Ur Leukocyte Esterase Negative Urine RBC 0 - 2 Urine WBC 0 - 2 Ur Epithelial Cells 0 - 2 Urine Bacteria Trace Assessment & Plan - Assessment and Plan (Free Text) Plan: Assessment SIRS, consider sepsis due to acute enteritis in patient with multiple episodes of small bowel obstruction DM history of cerebrovascular accident arthritis history of cholelithiasis S/P appendectomy Plan started patient on Zosyn pending blood cx; will monitor clinical response
--- NOTE | 2016-08-20 11:49 | MRI ---
PROCEDURE: Magnetic Resonance Cholangiopancreatography HISTORY: COMPARISON: None available. TECHNIQUE: Multiplanar, multisequence MR images of the abdomen were obtained, including heavily T2 weighted MRCP images of the biliary system. Rotating maximum intensity projection images of the biliary system were generated. FINDINGS: MRCP: The extrahepatic common bile duct is dilated measuring up to 11 millimeters in the pancreatic head. There is no evidence of choledocholithiasis. No gross stricture is observed. Findings may be secondary to chronic post cholecystectomy state. LIVER: Unremarkable. GALLBLADDER: Resected. SPLEEN: Unremarkable. PANCREAS: Unremarkable. ADRENALS: Unremarkable. KIDNEYS: Unremarkable. AORTA: No aneurysm. ASCITES: None. OTHER FINDINGS: None. IMPRESSION: Dilated extrahepatic common bile duct, likely secondary to post cholecystectomy state.
[2016-08-21] MEDS: Sodium Chloride 0.45% 1,000 ML IV SCH (04:13)
[2016-08-21] MEDS: Piperacillin/Tazobact 3.375 gm 100 ML IVPB SCH ×2 (05:12→11:34)
[2016-08-21 07:54] LABS: HEMATOCRIT 38.9 % (42.0-52.0); MEAN CELL VOLUME 91.1 fL (80.0-105.0); MEAN CORPUSCULAR HEMOGLOBIN 29.7 pg (25.0-35.0); MEAN CORPUSCULAR HGB CONC 32.6 g/dl (31.0-37.0); MEAN PLATELET VOLUME 10.5 fl (7.0-11.0); RED CELL DISTRIBUTION WIDTH 13.9 % (11.5-14.5); WHITE BLOOD COUNT 6.1 10^3/ul (4.5-11.0)
[2016-08-21 08:19] LABS: ALB/GLOB RATIO 1.1 (1.1-1.8); ALKALINE PHOSPHATASE 46 U/L (38-133); ALT/SGPT 52 U/L (7-56); AST/SGOT 39 U/L (15-59); BLOOD UREA NITROGEN 11 mg/dL (7-21); CALCIUM 8.5 mg/dL (8.4-10.5); CARBON DIOXIDE 22 mmol/L (21-33); CHLORIDE 112 mmol/L (98-107); GFR AFRICAN-AMERICAN > 60; GLUCOSE,RANDOM 82 mg/dL (70-110); POTASSIUM 3.9 mmol/L (3.6-5.0); SODIUM 140 mmol/L (132-148); TOTAL PROTEIN 6.1 g/dL (5.8-8.3)
[2016-08-21 08:34] VITALS: BP 166/84; TEMP 98; O2SAT 98
--- NOTE | 2016-08-21 08:39 | CP.PCM.PN ---
<LindatresarachelKendall - Last Filed: 08/21/16 08:35> Subjective - Date & Time of Evaluation Date of Evaluation: 08/21/16 Time of Evaluation: 07:10 - Subjective Subjective: PGY4 GI Fellow Progress Note Patient seen and examined bedside this morning. The patient denies any complaints at this time. States he is passing flatus, no BM since admission. Tolerating liquid diet without pain. No nausea, vomiting, fever, chills. 12 system ROS performed and negative except where stated. Objective - Vital Signs/Intake and Output Vital Signs (last 24 hours): Temp Pulse Resp BP Pulse Ox 98.0 F 58 L 20 166/84 H 98 08/21/16 06:00 08/21/16 06:00 08/21/16 06:00 08/21/16 06:00 08/21/16 06:00 Intake and Output: 08/21/16 08/21/16 06:59 18:59 Intake Total 1100 Output Total 200 Balance 900 - Medications Medications: Current Medications Aspirin (Ecotrin) 81 mg PO DAILY [facility] Last Admin: 08/20/16 11:20 Dose: 81 mg Sodium Chloride (Sodium Chloride 0.45%) 1,000 mls @ 60 mls/hr IV .[id number] [facility] Last Admin: 08/21/16 04:13 Dose: 60 mls/hr Piperacillin Sod/Tazobactam Sod (Zosyn 3.375 In Ns 100ml) 100 mls @ 200 mls/hr IVPB Q6 NEVAEH PRN Reason: Protocol Stop: 08/26/16 18:01 Last Admin: 08/21/16 05:12 Dose: 200 mls/hr Insulin Human Regular (Humulin R Med) 0 units SC ACHS NEVAEH PRN Reason: Protocol Last Admin: 08/20/16 22:00 Dose: Not Given Losartan Potassium (Cozaar) 25 mg PO DAILY [facility] Last Admin: 08/20/16 11:19 Dose: 25 mg Morphine Sulfate (Morphine) 4 mg IVP Q4H PRN PRN Reason: Pain, moderate (4-7) Polyethylene Glycol (Miralax) 17 gm PO DAILY [facility] Last Admin: 08/20/16 11:20 Dose: 17 gm - Labs Labs: 08/21/16 07:00 08/21/16 07:00 - Constitutional Appears: Non-toxic, No Acute Distress - Eye Exam Eye Exam: EOMI, PERRL - ENT Exam ENT Exam: Mucous Membranes Moist - Respiratory Exam Respiratory Exam: Clear to Ausculation Bilateral. absent: Rales, Rhonchi, Wheezes - Cardiovascular Exam Cardiovascular Exam: RRR, +S1, +S2 - GI/Abdominal Exam GI & Abdominal Exam: Soft, Normal Bowel Sounds. absent: Distended, Firm, Guarding, Rigid, Tenderness, Organomegaly - Extremities Exam Extremities Exam: Normal Inspection. absent: Pedal Edema - Neurological Exam Neurological Exam: Alert, Awake, Oriented x3 - Psychiatric Exam Psychiatric exam: Normal Affect, Normal Mood - Skin Skin Exam: Dry, Warm Assessment and Plan - Assessment and Plan (Free Text) Assessment: Patient is a 81yo male with PMHx significant for multiple SBO, TIA, CAD (RCA 60 % stenotic on medical management), GERD, DM, HTN who presented to the ED with one day of abdominal pain. -Abdominal pain, resolved -Questionable mild enteritis/colitis -CAD Plan: -Advance diet as tolerated -If patient has no issue with regular diet, OK to D/C from GI standpoint -Antibiotic coverage per ID -MRCP reviewed, unremarkable -Encourage outpatient follow up; patient will require endoscopic evaluation <Clinton Skaggs - Last Filed: 08/21/16 10:56> Objective - Vital Signs/Intake and Output Vital Signs (last 24 hours): Temp Pulse Resp BP Pulse Ox 98.0 F 60 20 166/84 H 98 08/21/16 06:00 08/21/16 09:47 08/21/16 06:00 08/21/16 09:47 08/21/16 06:00 Intake and Output: 08/21/16 08/21/16 06:59 18:59 Intake Total 1100 Output Total 200 Balance 900 - Medications Medications: Current Medications Aspirin (Ecotrin) 81 mg PO DAILY [facility] Last Admin: 08/21/16 09:47 Dose: 81 mg Sodium Chloride (Sodium Chloride 0.45%) 1,000 mls @ 60 mls/hr IV .[id number] [facility] Last Admin: 08/21/16 04:13 Dose: 60 mls/hr Piperacillin Sod/Tazobactam Sod (Zosyn 3.375 In Ns 100ml) 100 mls @ 200 mls/hr IVPB Q6 NEVAEH PRN Reason: Protocol Stop: 08/26/16 18:01 Last Admin: 08/21/16 05:12 Dose: 200 mls/hr Insulin Human Regular (Humulin R Med) 0 units SC ACHS NEVAEH PRN Reason: Protocol Last Admin: 08/21/16 09:47 Dose: Not Given Losartan Potassium (Cozaar) 25 mg PO DAILY [facility] Last Admin: 08/21/16 09:47 Dose: 25 mg Morphine Sulfate (Morphine) 4 mg IVP Q4H PRN PRN Reason: Pain, moderate (4-7) Polyethylene Glycol (Miralax) 17 gm PO DAILY [facility] Last Admin: 08/21/16 09:48 Dose: 17 gm - Labs Labs: 08/21/16 07:00 08/21/16 07:00 Attending/Attestation - Attestation I have personally seen and examined this patient.: Yes I have fully participated in the care of the patient.: Yes I have reviewed all pertinent clinical information, including history, physical exam and plan: Yes Notes (Text): 08/21/16 10:54 I have seen and examined patient with GI fellow. Patient is seen resting in bed comfortably, no acute events overnight. He denies abdominal pain, nausea, vomiting, diarrhea (no bowel movements while in hospital), fever/chills. Tolerating PO liquids without difficulty. Review of vitals from today shows elevated BP. CAD TIA DM / HTN Abdominal pain - resolved, ?colitis - Advance diet as tolerated - Continue with antibiotic therapy as per ID - Patient planned for hospital discharge today, he will require outpatient elective colonoscopy following resolution of acute symptoms, particularly since he has never had procedure before. Office contact information provided to patient.
[2016-08-21] MEDS: Insulin Reg-MEDIUM-Coverage SC SCH ×2 (09:47→11:30)
[2016-08-21] MEDS: POLYETHYLENE GLYCOL 3350 17 GM/Dose PACKET PO SCH (09:48)
[2016-08-21 09:53] VITALS: PULSE 60
--- NOTE | 2016-08-21 11:12 | CP.PCM.PN ---
Subjective - Date & Time of Evaluation Date of Evaluation: 08/21/16 Time of Evaluation: 09:55 - Subjective Subjective: Feeling much better, no more abdominal pain, passing gas, able to eat, no fevers overnight. Objective - Vital Signs/Intake and Output Vital Signs (last 24 hours): Temp Pulse Resp BP Pulse Ox 98.0 F 58 L 20 166/84 H 98 08/21/16 06:00 08/21/16 06:00 08/21/16 06:00 08/21/16 06:00 08/21/16 06:00 Intake and Output: 08/21/16 08/21/16 06:59 18:59 Intake Total 1100 Output Total 200 Balance 900 - Medications Medications: Current Medications Aspirin (Ecotrin) 81 mg PO DAILY [facility] Last Admin: 08/20/16 11:20 Dose: 81 mg Sodium Chloride (Sodium Chloride 0.45%) 1,000 mls @ 60 mls/hr IV .[id number] [facility] Last Admin: 08/21/16 04:13 Dose: 60 mls/hr Piperacillin Sod/Tazobactam Sod (Zosyn 3.375 In Ns 100ml) 100 mls @ 200 mls/hr IVPB Q6 NEVAEH PRN Reason: Protocol Stop: 08/26/16 18:01 Last Admin: 08/21/16 05:12 Dose: 200 mls/hr Insulin Human Regular (Humulin R Med) 0 units SC ACHS [facility] PRN Reason: Protocol Last Admin: 08/20/16 22:00 Dose: Not Given Losartan Potassium (Cozaar) 25 mg PO DAILY [facility] Last Admin: 08/20/16 11:19 Dose: 25 mg Morphine Sulfate (Morphine) 4 mg IVP Q4H PRN PRN Reason: Pain, moderate (4-7) Polyethylene Glycol (Miralax) 17 gm PO DAILY [facility] Last Admin: 08/20/16 11:20 Dose: 17 gm - Labs Labs: 08/21/16 07:00 08/21/16 07:00 - Constitutional Appears: Non-toxic, No Acute Distress - Head Exam Head Exam: NORMAL INSPECTION - ENT Exam ENT Exam: Mucous Membranes Moist - Neck Exam Neck Exam: absent: Lymphadenopathy, Meningismus - Respiratory Exam Respiratory Exam: Decreased Breath Sounds - Cardiovascular Exam Cardiovascular Exam: +S1, +S2 - GI/Abdominal Exam GI & Abdominal Exam: Soft. absent: Tenderness Assessment and Plan - Assessment and Plan (Free Text) Plan: Assessment SIRS, consider sepsis due to acute enteritis in patient with multiple episodes of small bowel obstruction, clinically improving CBD dilatation without CBC stone, probably post-cholecystectomy DM history of cerebrovascular accident arthritis history of cholelithiasis S/P appendectomy Plan as discussed with Dr. Cha, we can switch antibiotics to Augmentin for another 7 days, with outpatient follow up with PMD
--- NOTE | 2016-08-21 11:38 | DS ---
I saw him this morning in his room in [facility]. He is comfortable in bed, slept well. He tells me he is passing gas. The rim roller setter had seen him and said he is good to go. I spoke to the infectio us disease doctor. They put him on Augmentin 875. He is going to eat breakfast and lunch today. If he does well with breakfast and lunch, and has no nausea, vomiting, abdominal pain, we will discharg e him today. He is currently on IV fluids, Cozaar, Ecotrin, insulin coverage, MiraLax, morphine for pain and Zosyn . PHYSICAL EXAMINATION: VITAL SIGNS: Temp 97.8, 52 pulse, 137/72 blood pressure, 20 respiratory rate and 100% O2 sat on room air. HEENT: His head is atraumatic, normocephalic. Throat is moist. NECK: Supple. HEART: Regular rate. LUNGS: Clear to auscultation. ABDOMEN: Soft, nontender, positive bowel sounds, no guarding, no rebound, no CVA tenderness. EXTREMITIES: Have no edema. He has a 6.1 white count, 12.7 hemoglobin, 38.9 hematocrit with 195 platelets. Sodium 140, 4 potassi um, BUN 50, creatinine 1.2, GFR is greater than 60, sugar is 58, calcium is 8.5, total bili is 1.1, A ST is 63, ALT is 69, alk phos 48, total protein 6.2, albumin is 3.2, globulin 3. Hepatitis screen wa s negative. If he eats well for breakfast and lunch, he will be discharged after lunch. He was here for enteriti s, colitis, abdominal pain. He is a diabetic. He will follow up with Dr. Cha on the outpatient. He has to get a colonoscopy in the next week to 2 weeks with the GI guys. Phill Cha DO cc: [id number] TT: 08/21/2016 11:37:53 en
== END 2016-08-21 17:19 | disposition home or self-care (01) ==
LOC: ED 06:13 → EROBSV 07:10 → ERH 12:54 → 3RSO 14:25 → INTOOBSV 08-20 07:22 → OBSVTOIN 08-20 07:22
PROVIDERS: ADMIT Family Medicine; ATTEND Family Medicine
DX: K52.9 Noninfective gastroenteritis and colitis, unspecified (principal); E11.649 Type 2 diabetes mellitus with hypoglycemia without coma; I10 Essential (primary) hypertension; I25.10 Atherosclerotic heart disease of native coronary artery without angina pectoris; K21.9 Gastro-esophageal reflux disease without esophagitis; M54.30 Sciatica, unspecified side; M19.90 Unspecified osteoarthritis, unspecified site; Z79.82 Long term (current) use of aspirin; Z79.84 Long term (current) use of oral hypoglycemic drugs; Z86.73 Personal history of transient ischemic attack (TIA), and cerebral infarction without residual deficits
CPT/HCPCS: 36415; 74177; 74181; 80053; 80074; 81001; 82803; 82948; 83690; 85025; 85027; 87040; 93005; 96365; 96366; 96367; 96375; 99285; G0378; J0744; J2270; J2405; J2543; J7030; J7040; Q9966; Q9967

== ENCOUNTER 2016-09-17 10:40 | Day surgery (SDC) | payer MEDICARE ==
[2016-09-10 09:51] VITALS: BMI 21.2
[2016-09-17] MEDS ORDERED: Propofol 10 mg/ml Inj (20 ML) ONE (12:51)
[2016-09-17] MEDS ORDERED: Sodium Chloride 0.9% 1,000 ML IV SCH (13:45)
[2016-09-17 14:42] VITALS: BP 145/80; RESP 18; TEMP 97.6
[2016-09-17 15:16] VITALS: PULSE 68; O2SAT 100
== END 2016-09-17 15:11 | disposition home or self-care (01) ==
LOC: ENDO 10:40
PROVIDERS: ATTEND Internal Medicine
DX: D12.3 Benign neoplasm of transverse colon (principal); D12.0 Benign neoplasm of cecum; K63.5 Polyp of colon; K64.8 Other hemorrhoids; E11.9 Type 2 diabetes mellitus without complications; I10 Essential (primary) hypertension; K63.89 Other specified diseases of intestine
CPT/HCPCS: 45380; 45381; 45385; 82948; 88305; J2704; J7040 ×2

== ENCOUNTER 2016-09-24 23:13 | Emergency (ER) | payer MEDICARE ==
[2016-09-24 23:13] VITALS: BMI 21.2
[2016-09-24] MEDS ORDERED: Sodium Chloride 0.9% 1,000 ML IV STA (23:58)
[2016-09-25 00:41] LABS: BASO # 0.02 K/mm3 (0.0-2.0); BASO % 0.3 % (0.0-3.0); EOS # 0.3 (0.0-0.7); EOS % 3.5 % (1.5-5.0); GRAN # 5.51 (1.4-6.5); GRAN % 73.2 % (50.0-68.0); HEMOGLOBIN 12.2 gm/dL (14.0-18.0); LYMPH # 1.3 (1.2-3.4); LYMPH % 17.7 % (22.0-35.0); MEAN CELL VOLUME 91.6 fL (80.0-105.0); MEAN CORPUSCULAR HEMOGLOBIN 30.3 pg (25.0-35.0); MEAN CORPUSCULAR HGB CONC 33.1 g/dl (31.0-37.0); MEAN PLATELET VOLUME 10.6 fl (7.0-11.0); MONO # 0.4 (0.1-0.6); MONO % 5.3 % (1.0-6.0); PLATELET COUNT 203 10^3/uL (120.0-450.0); RBC 4.03 10^6/uL (3.5-6.1); RED CELL DISTRIBUTION WIDTH 13.7 % (11.5-14.5); WHITE BLOOD COUNT 7.5 10^3/ul (4.5-11.0)
[2016-09-25 00:48] LABS: ALB/GLOB RATIO 1.2 (1.1-1.8); ALBUMIN 3.6 g/dL (3.0-4.8); ALT/SGPT 38 U/L (7-56); AST/SGOT 33 U/L (15-59); BLOOD UREA NITROGEN 32 mg/dL (7-21); CALCIUM 9.2 mg/dL (8.4-10.5); GFR AFRICAN-AMERICAN > 60; GFR NON-AFRICAN AMERICAN 53; INR 0.95 (0.93-1.08); LIPASE 236 U/L (23-300); PARTIAL THROMBOPLASTIN TIME 25.8 Seconds (23.7-30.8); PROTHROMBIN TIME 10.3 Seconds (9.9-11.8)
[2016-09-25 00:57] LABS: URINE BILIRUBIN NEGATIVE (NEGATIVE); URINE BLOOD NEGATIVE (NEGATIVE); URINE GLUCOSE (UA) NEGATIVE (NEGATIVE); URINE LEUKOCYTE ESTERASE TRACE Leu/uL (NEGATIVE); URINE NITRATE NEGATIVE (NEGATIVE); URINE PROTEIN TRACE mg/dL (<30 mg/dL); URINE UROBILINOGEN 0.2 E.U./dL (<1 E.U./dL)
[2016-09-25 01:05] LABS: URINE APPEARANCE SL CLOUDY (CLEAR); URINE COLOR YELLOW (YELLOW)
[2016-09-25 01:11] LABS: URINE BACTERIA RARE (NEG); URINE EPITHELIAL CELLS 0 - 2 /hpf (0-5); URINE RBC 0 - 2 /hpf (0-2); URINE WBC 0 - 2 /hpf (0-6)
--- NOTE | 2016-09-25 01:11 | ED PDOC ---
Arrival/HPI - General Historian: Patient - History of Present Illness Time/Duration: 4-6 hours Symptom Onset: Sudden Symptom Course: Unchanged - General Chief Complaint: GI Problem Time Seen by Provider: 09/24/16 23:57 - History of Present Illness Narrative History of Present Illness (Text): 09/25/16 01:07 Mr. Simeon is a 81 yo male with PMH significant for small bowel obstruction, enteritis, and colitis presents to the emergency department complaining of bright red blood in his stool. He noticed the blood in his stool this evening around 22:00. He denies any clots or dark blood in his stool. He indicated that last week he did have a colonoscopy with removal of polyps. He is seen by Dr. Guerra and is scheduled for endoscopy 10/01/2016. (YENI PATEL) Past Medical History - Provider Review Nursing Documentation Reviewed: Yes - Infectious Disease Hx of Infectious Diseases: None - Tetanus Immunization Tetanus Immunization: Unknown - Reproductive Currently : No - Cardiac Hx Hypertension: Yes Hx Pacemaker: No - Pulmonary Hx Respiratory Disorders: No - Neurological HX Cerebrovascular Accident: Yes (Rt. sided) Hx Paralysis: No - HEENT Hx HEENT Disorder: Yes (WEARS RX GLASSES FOR READING) Hx Cataracts: Yes (BILATERAL SURGERY) - Renal Hx Renal Disorder: No - Endocrine/Metabolic Hx Diabetes Mellitus Type 2: Yes - Hematological/Oncological Hx Blood Transfusions: No Hx Blood Transfusion Reaction: No - Integumentary Hx Dermatological Disorder: No - Musculoskeletal/Rheumatological Hx Musculoskeletal Disorders: Yes (SCIATICA) - Gastrointestinal Hx Gastrointestinal Disorders: Yes (APPENDECTOMY(RUPTURED APPENDIX)) Hx Gall Bladder Disease: Yes (CHOLELITHIASIS) Other/Comment: Bowel obstruction - Genitourinary/Gynecological Hx Genitourinary Disorders: Yes Hx Prostate Problems: Yes - Psychiatric Hx Emotional Abuse: No Hx Physical Abuse: No Hx Substance Use: No - Past Surgical History Past Surgical History: No Previous - Surgical History Hx Appendectomy: Yes Hx Cholecystectomy: Yes - Anesthesia Hx Anesthesia Reactions: No Hx Malignant Hyperthermia: No - Suicidal Assessment Feels Threatened In Home Enviroment: No Family/Social History - Physician Review Nursing Documentation Reviewed: Yes Family/Social History: No Known Family HX Smoking Status: Never Smoked Hx Alcohol Use: Yes (RED WINE AFTER DINNER) Hx Substance Use: No Hx Substance Use Treatment: No Allergies/Home Meds Allergies/Adverse Reactions: Allergies No Known Allergies Allergy (Verified 09/24/16 23:43) Home Medications: Home Meds Medication Instructions Recorded Confirmed Valsartan [Diovan] 40 mg PO QPM 02/19/16 09/24/16 metFORMIN [glucOPHAGE] 500 mg PO PRN PRN 02/19/16 09/24/16 Aspirin [Ecotrin] 81 mg PO QPM 06/11/16 09/24/16 Axsmo-3-Olip Ethyl Esters [OMEGA 3] 500 mg PO QAM 09/10/16 09/24/16 Ubidecarenone [Co Q-10] 10 mg PO QAM 09/10/16 09/24/16 Polyethylene Glycol 3350 [Miralax] 17 gm PO QPM 09/21/16 09/24/16 Review of Systems - Review of Systems Constitutional: absent: Fatigue, Weight Change, Fevers Eyes: absent: Vision Changes, Photophobia Respiratory: absent: SOB, Cough, Sputum, Wheezing Cardiovascular: absent: Chest Pain, Palpitations, Edema Gastrointestinal: Diarrhea, Hematochezia. absent: Abdominal Pain, Appetite Changes Genitourinary Male: absent: Dysuria, Hematuria Musculoskeletal: Normal Skin: absent: Rash, Pruritis Neurological: absent: Headache, Dizziness, Focal Weakness Endocrine: Normal. absent: Diaphoresis, Polyuria Hemo/Lymphatic: absent: Easy Bleeding, Easy Bruising Psychiatric: absent: Anxiety, Depression Physical Exam Vital Signs Reviewed: Yes Temperature: Afebrile Blood Pressure: Normal Pulse: Regular Respiratory Rate: Normal Appearance: Positive for: Well-Appearing Pain Distress: None Mental Status: Positive for: Alert and Oriented X 3 Finger Stick Blood Glucose: 160 - Systems Exam Head: Present: Atraumatic, Normocephalic Pupils: Present: PERRL Extroacular Muscles: Present: EOMI Conjunctiva: Present: Normal Mouth: Present: Moist Mucous Membranes Respiratory/Chest: Present: Clear to Auscultation, Good Air Exchange, Respiratory Distress Cardiovascular: Present: Regular Rate and Rhythm, Normal S1, S2. No: Murmurs Abdomen: Present: Tenderness, Normal Bowel Sounds. No: Distention, Peritoneal Signs, Rebound, Guarding Rectal: Present: Normal Rectal Tone. No: Hemorrhoids, Fissures Upper Extremity: Present: Normal Inspection, Normal ROM. No: Cyanosis, Edema Lower Extremity: Present: Normal Inspection, NORMAL PULSES. No: Edema Neurological: Present: GCS=15, CN II-XII Intact, Speech Normal Skin: Present: Warm, Dry. No: Rashes Psychiatric: Present: Alert, Oriented x 3, Normal Insight, Normal Concentration Medical Decision Making Reassessment Condition: Improved - Lab Interpretations I have reviewed the lab results: Yes - EKG Interpretation Interpreted by ED Physician: Yes ED Course and Treatment: 09/25/16 06:06 Impression: Mr. Simeon is a 81 year old male who complains of rectal bleeding beginning the evening of 09/24/2016. Differential Diagnosis included but are not limited to: Diverticulitis vs. colitis vs. internal hemorrhoids Plan: - FOBT - Urinalysis - Labs - CT scan of abdomen - Reassess and disposition Progress Notes: (YENI PATEL) - Lab Interpretations Lab Results: 09/25/16 00:15 09/25/16 00:15 Lab Results 09/25/16 00:15: Sodium 136, Potassium 5.2 H, Chloride 103, Carbon Dioxide 27, Anion Gap 11, BUN 32 H, Creatinine 1.3, Est GFR ( Amer) > 60, Est GFR ( Non-Af Amer) 53, Random Glucose 125 H, Calcium 9.2, Total Bilirubin 0.3, AST 33 , ALT 38, Alkaline Phosphatase 34 L, Total Protein 6.7, Albumin 3.6, Globulin 3.1, Albumin/Globulin Ratio 1.2, Lipase 236 09/25/16 00:15: PT 10.3, INR 0.95, APTT 25.8 09/25/16 00:15: WBC 7.5 D, RBC 4.03, Hgb 12.2 L, Hct 36.9 L, MCV 91.6, MCH 30.3 , MCHC 33.1, RDW 13.7, Plt Count 203, MPV 10.6, Gran % 73.2 H, Lymph % (Auto) 17.7 L, Ashley % (Auto) 5.3, Eos % (Auto) 3.5, Baso % (Auto) 0.3, Gran # 5.51, Lymph # 1.3, Ashley # 0.4, Eos # 0.3, Baso # 0.02 09/25/16 00:05: Urine Color Yellow, Urine Appearance Sl cloudy, Urine pH 7.0, Ur Specific [place] 1.010, Urine Protein Trace H, Urine Glucose (UA) Negative, Urine Ketones Negative, Urine Blood Negative, Urine Nitrate Negative, Urine Bilirubin Negative, Urine Urobilinogen 0.2, Ur Leukocyte Esterase Trace H, Urine RBC 0 - 2, Urine WBC 0 - 2, Ur Epithelial Cells 0 - 2, Urine Bacteria Rare 09/24/16 23:39: POC Glucose (mg/dL) 162 H - RAD Interpretation Radiology Orders: 09/25/16 00:13 ABDOMEN & PELVIS [ABD PELVIS PO & IV CONTRAST] [CT] Stat - Medication Orders Current Medication Orders: Discontinued Medications Sodium Chloride (Sodium Chloride 0.9%) 1,000 mls @ 125 mls/hr IV .Q8H STA Stop: 09/25/16 07:57 Last Admin: 09/25/16 00:19 Dose: 125 mls/hr Iohexol (Omnipaque 350 100 Ml) Confirm Administered Dose 350 mg .ROUTE .STK-MED ONE Stop: 09/25/16 01:17 Iohexol (Omnipaque 240 (50 Ml)) Confirm Administered Dose 50 ml .ROUTE .STK-MED ONE Stop: 09/25/16 01:18 - PA / PALLIATIVE CARE COORDINATOR / Resident Statement / has reviewed & agrees with the documentation as recorded. MD/DO has examined the patient and agrees with the treatment plan. Disposition/Present on Arrival - Present on Arrival Any Indicators Present on Arrival: No History of DVT/PE: No History of Uncontrolled Diabetes: No Urinary Catheter: No History of Decub. Ulcer: No History Surgical Site Infection Following: None - Disposition Have Diagnosis and Disposition been Completed?: Yes Disposition Time: 06:11 - Disposition Diagnosis: Rectal bleeding Disposition: HOME/ ROUTINE Condition: STABLE Discharge Instructions (ExitCare): Rectal Bleeding (ED) Additional Instructions: Thank you for letting us take care of you today. Your provider was Dr. Johansen. You were treated for rectal bleeding. The emergency medical care you received today was directed at your acute symptoms. If you were prescribed any medication, please fill it and take as directed. It may take several days for your symptoms to resolve. Return to the Emergency Department if your symptoms worsen, do not improve, or if you have any other problems. Please contact your doctor or call one of the physicians/clinics you have been referred to that are listed on the Patient Visit Information form that is included in your discharge packet. Bring any paperwork you were given at discharge with you along with any medications you are taking to your follow up visit. Our treatment cannot replace ongoing medical care by a primary care provider (PCP) outside of the emergency department. Thank you for allowing the [facility] team to be part of your care today. Follow up with your primary doctor in 2-3 days for re-evaluation. Referrals: Phill Cha, DO [Family Provider] - Follow up with primary
[2016-09-25] MEDS ORDERED: Iohexol 350 MG/100 ML VIAL ONE (01:16)
[2016-09-25] MEDS ORDERED: Iohexol 240 (50 ml) ONE (01:17)
[2016-09-25 04:58] VITALS: RESP 18
--- NOTE | 2016-09-25 05:54 | CT ---
EXAM: CT Abdomen and Pelvis With Intravenous Contrast CLINICAL HISTORY: 81 years old, male; Pain; Abdominal pain; Additional info: Blood in stool - h/o abnormal abd. Ct's in past TECHNIQUE: Axial computed tomography images of the abdomen and pelvis with intravenous contrast. This CT exam was performed using one or more of the following dose reduction techniques: automated exposure control, adjustment of the mA and/or kV according to patient size, and/or use of iterative reconstruction technique. Coronal and sagittal reformatted images were created and reviewed. CONTRAST: 100 mL of OMNIPAQUE administered intravenously. COMPARISON: CT - ABD PELVIS IV CONTRAST ONLY 08/19/2016 9:47:11 AM FINDINGS: Lower thorax: Borderline cardiomegaly. Minimal atelectasis/scarring. ABDOMEN: Liver: Mild intrahepatic ductal dilatation, similar to previous examination. Gallbladder and bile ducts: Cholecystectomy. Mild extrahepatic ductal dilatation, similar to previous examination. Pancreas: No discrete mass. Mild pancreatic ductal dilatation. Spleen: Too small to characterize lesion. No splenomegaly. Adrenals: Mild hypertrophy of adrenal glands. Kidneys and ureters: No mass. Mild pelvocaliectasis of both kidneys. Stomach and bowel: Moderate mural thickening versus underdistention of stomach. No definite bowel wall thickening. No obstruction. Appendix: No findings to suggest acute appendicitis. PELVIS: Bladder: Unremarkable. Reproductive: Enlarged, heterogeneous prostate gland. ABDOMEN and PELVIS: Intraperitoneal space: No significant fluid collection. No free air. Bones/joints: Chronic L5 pars defects with anterolisthesis. Mild degenerative changes of spine. Soft tissues: Unremarkable. Vasculature: Mild atherosclerotic disease. No aneurysm. Lymph nodes: No pathologically enlarged lymph nodes. IMPRESSION: 1. Gastric wall thickening versus underdistention. Clinical correlation is needed. 2. Biliary/pancreatic ductal dilatation, similar to previous examination. 3. Prostate enlargement. Followup as clinically warranted. 4. Incidental/non-acute findings are described above.
[2016-09-25 06:14] VITALS: BP 130/78; PULSE 62; TEMP 62; O2SAT 99
--- NOTE | 2016-09-25 10:42 | CARD ---
APPROVED REPORT EKG Measurement Heart [id number] <Conclusion> Normal sinus rhythm LVH by voltage, possible normal variant No change
== END 2016-09-25 06:17 | disposition home or self-care (01) ==
LOC: ED 23:13
DX: K62.5 Hemorrhage of anus and rectum (principal); K56.60 Unspecified intestinal obstruction; I10 Essential (primary) hypertension; Z86.73 Personal history of transient ischemic attack (TIA), and cerebral infarction without residual deficits
CPT/HCPCS: 74177; 80053; 81001; 82948; 83690; 85025; 85610; 85730; 87086; 93005; 96360; 99284; J7040; Q9966; Q9967

== ENCOUNTER 2016-10-01 10:15 | Day surgery (SDC) | payer MEDICARE ==
[2016-09-10 09:51] VITALS: BMI 21.2
[2016-10-01 10:52] LABS: BASO # 0.01 K/mm3 (0.0-2.0); BASO % 0.1 % (0.0-3.0); EOS # 0.2 (0.0-0.7); EOS % 2.8 % (1.5-5.0); GRAN # 4.69 (1.4-6.5); GRAN % 66.5 % (50.0-68.0); HEMOGLOBIN 11.3 gm/dL (14.0-18.0); LYMPH # 1.8 (1.2-3.4); LYMPH % 25.4 % (22.0-35.0); MEAN CELL VOLUME 91.7 fL (80.0-105.0); MEAN CORPUSCULAR HEMOGLOBIN 30.2 pg (25.0-35.0); MEAN CORPUSCULAR HGB CONC 32.9 g/dl (31.0-37.0); MEAN PLATELET VOLUME 10.4 fl (7.0-11.0); MONO # 0.4 (0.1-0.6); MONO % 5.2 % (1.0-6.0); PLATELET COUNT 227 10^3/uL (120.0-450.0); RBC 3.74 10^6/uL (3.5-6.1); RED CELL DISTRIBUTION WIDTH 13.5 % (11.5-14.5); WHITE BLOOD COUNT 7.1 10^3/ul (4.5-11.0)
[2016-10-01 11:03] LABS: INR 0.93 (0.93-1.08)
[2016-10-01 11:04] LABS: ALB/GLOB RATIO 1.2 (1.1-1.8); ALT/SGPT 41 U/L (7-56); AST/SGOT 40 U/L (15-59); BLOOD UREA NITROGEN 19 mg/dL (7-21); CALCIUM 9.2 mg/dL (8.4-10.5); GFR AFRICAN-AMERICAN > 60; GFR NON-AFRICAN AMERICAN 53
[2016-10-01] MEDS ORDERED: Lactated Ringer's 1,000 ML IV SCH (11:42)
[2016-10-01] MEDS ORDERED: Propofol 10 mg/ml Inj (20 ML) ONE (12:07)
[2016-10-01] MEDS ORDERED: Midazolam 2 MG/2 ML VIAL ONE (12:08)
[2016-10-01 15:06] VITALS: BP 136/73; PULSE 49; RESP 16; TEMP 97.5; O2SAT 100
== END 2016-10-01 15:54 | disposition home or self-care (01) ==
LOC: ENDO 10:15
PROVIDERS: ATTEND Internal Medicine
DX: K29.70 Gastritis, unspecified, without bleeding (principal); K83.8 Other specified diseases of biliary tract; K86.89 Other specified diseases of pancreas
CPT/HCPCS: 36415; 43237; 43239; 80053; 85025; 85610; 85730; 88305; 88342; J2250; J2704; J3010; J7040; J7120

== ENCOUNTER 2017-11-11 08:28 | Inpatient (IN) | payer MEDICARE ==
[2017-11-11 08:33] VITALS: BMI 21.6
--- NOTE | 2017-11-11 09:01 | ED PDOC ---
Arrival/HPI - General Time Seen by Provider: 11/11/17 08:30 Historian: Patient, Spouse () - History of Present Illness Narrative History of Present Illness (Text): 11/11/17 09:03 A 82 year old male, whose past medical history includes diabetes type 2, appendectomy, cholelithiasis (cholecystectomy), and sciatica, presents to the emergency department complaining of abdominal pain after having bowel movement last night. Patient reports he has not had a bowel movement for 3 days prior to last night. States he has a history of intestinal blockage (approximately 4 times in the past). Patient notes pain is not similar to when he had blockage in the past. Patient denies any fever, nausea vomiting, diarrhea, or any other complaints at this time. Also, patient mentions having endoscopy and colonoscopy with removal of polyps performed last year 09/2016. PMD: Dr. Cha Time/Duration: Other (abdominal pain since last night after having bowel movement (prior did not have bowel movement for 3 days)) Symptom Onset: Sudden Symptom Course: Unchanged Past Medical History - Provider Review Nursing Documentation Reviewed: Yes - Infectious Disease Hx of Infectious Diseases: None - Tetanus Immunization Tetanus Immunization: Unknown - Cardiac Hx Pacemaker: No - Pulmonary Hx Respiratory Disorders: No - Neurological Hx Paralysis: No - HEENT Hx HEENT Disorder: Yes (WEARS RX GLASSES FOR READING) Hx Cataracts: Yes (BILATERAL SURGERY) - Renal Hx Renal Disorder: No - Endocrine/Metabolic Hx Diabetes Mellitus Type 2: Yes - Hematological/Oncological Hx Blood Transfusions: No Hx Blood Transfusion Reaction: No - Integumentary Hx Dermatological Disorder: No - Musculoskeletal/Rheumatological Hx Musculoskeletal Disorders: Yes (SCIATICA) - Gastrointestinal Hx Gastrointestinal Disorders: Yes (APPENDECTOMY(RUPTURED APPENDIX)) Hx Gall Bladder Disease: Yes (CHOLELITHIASIS) Other/Comment: Bowel obstruction - Genitourinary/Gynecological Hx Genitourinary Disorders: Yes Hx Prostate Problems: Yes - Psychiatric Hx Emotional Abuse: No Hx Physical Abuse: No Hx Substance Use: No - Past Surgical History Past Surgical History: No Previous - Surgical History Hx Appendectomy: Yes Hx Cholecystectomy: Yes - Anesthesia Hx Anesthesia Reactions: No Hx Malignant Hyperthermia: No - Suicidal Assessment Feels Threatened In Home Enviroment: No Family/Social History - Physician Review Nursing Documentation Reviewed: Yes Family/Social History: No Known Family HX Smoking Status: Never Smoked Hx Alcohol Use: Yes (RED WINE AFTER DINNER) Hx Substance Use: No Hx Substance Use Treatment: No Allergies/Home Meds Allergies/Adverse Reactions: Allergies No Known Allergies Allergy (Verified 09/24/16 23:43) Home Medications: Home Meds Medication Instructions Recorded Confirmed Valsartan [Diovan] 40 mg PO QPM 02/19/16 11/11/17 metFORMIN [glucOPHAGE] 500 mg PO PRN PRN 02/19/16 11/11/17 Aspirin [Ecotrin] 81 mg PO QPM 06/11/16 11/11/17 [id number] Ethyl Esters [OMEGA 3] 500 mg PO QAM 09/10/16 11/11/17 Ubidecarenone [Co Q-10] 10 mg PO QAM 09/10/16 11/11/17 Polyethylene Glycol 3350 [Miralax] 17 gm PO QPM 09/21/16 11/11/17 Losartan [Cozaar] 1 tab PO DAILY 10/01/16 11/11/17 Review of Systems - Physician Review All systems were reviewed & negative as marked: Yes - Review of Systems Constitutional: absent: Fevers Gastrointestinal: Abdominal Pain (s/p bowel movement). absent: Diarrhea, Nausea , Vomiting Physical Exam - Physical Exam Narrative Physical Exam (Text): Gen: VS reviewed, alert, well developed, well nourished, nontoxic, mild distress. ENT: normal pharynx. Eye: EOMI, PERRL. Neck: no JVD, supple, no adenopathy. CV: regular rate, regular rhythm, no rubs, no murmur, no gallops, S1, S2, pulses equal and strong. Pulm: no distress, clear to auscultation, no wheeze, no rhonchi, breath sounds equal, no rales. Abd: moderate/mild abdominal tenderness, with guarding, no rebound, no rigidity , normal bowel sounds. Ext: no edema. Skin: good color, no rash, no cyanosis. Psych: responds appropriately to questions, normal affect. Neuro: oriented x 3, CN2-12 intact grossly, motor intact, sensation intact. Vital Signs Reviewed: Yes Vital Signs Temp Pulse Resp BP Pulse Ox 11/11/17 11:31 65 18 140/76 99 11/11/17 09:25 65 18 140/75 98 11/11/17 08:42 98.2 F 68 18 152/76 H 98 11/11/17 08:28 98.5 F 65 16 152/76 H 99 Temperature: Afebrile Blood Pressure: Normal Pulse: Regular Respiratory Rate: Normal Appearance: Positive for: Well-Appearing Pain Distress: None Mental Status: Positive for: Alert and Oriented X 3 Medical Decision Making ED Course and Treatment: 11/11/17 09:05 Impression: 82 year old male with abdominal pain. Physical exam shows moderate/ mild abdominal tenderness with guarding, no rebound/rigidity; no other acute findings on examination. Differential Diagnosis included but are not limited to: Bowel Obstruction vs. Diverticulitis. Plan: -- EKG -- Abdominal X-ray -- Labs -- Morphine -- Urinalysis -- Reassess and disposition Progress Notes: 11/11/2017 10:40 Abdominal X-ray IMPRESSION: No active disease. Dictator: Archie Fitch MD 11/11/2017 11:26 Abd/Pelvis CT IMPRESSION: Multiple fluid-filled dilated loops of small bowel are seen throughout the abdomen. The transition point is seen in the right lower quadrant. Findings are consistent with partial small bowel obstruction probably due to adhesions. Dictator: Archie Fitch MD 11/11/17 12:07 Case discussed with residential driver, who come down to the ER to evaluate patient at bedside. 11/11/17 13:[address] cha 11/11/17 13:15 patient seen by surgical team and have discussed the case with dr. carrillo, they do not feel patient requires NGT for now as the patient not currently in pain and not vomiting. they will observe clinically for now. - Lab Interpretations Lab Results: 11/11/17 09:09 11/11/17 09:09 Lab Results 11/11/17 12:00: Urine Color Yellow, Urine Appearance Clear, Urine pH 8.0, Ur Specific [place] <= 1.005, Urine Protein 30 H, Urine Glucose (UA) Negative, Urine Ketones Trace H, Urine Blood Trace-lysed H, Urine Nitrate Negative, Urine Bilirubin Negative, Urine Urobilinogen 0.2, Ur Leukocyte Esterase Negative, Urine RBC 2 - 5, Urine WBC 0 - 2, Ur Epithelial Cells None, Urine Bacteria Few 11/11/17 09:09: PT 10.6, INR 0.92, APTT 34.0 11/11/17 09:09: Sodium 139, Potassium 4.7, Chloride 103, Carbon Dioxide 24, Anion Gap 17, BUN 29 H, Creatinine 1.4, Est GFR ( Amer) 59, Est GFR (Non- Af Amer) 49, Random Glucose 120 H, Calcium 9.8, Total Bilirubin 0.7, AST 37, ALT 31, Alkaline Phosphatase 42, Total Protein 7.8, Albumin 4.4, Globulin 3.4, Albumin/Globulin Ratio 1.3, Lipase 203 11/11/17 09:09: WBC 12.7 H D, RBC 4.80, Hgb 14.8, Hct 43.4, MCV 90.4, MCH 30.8, MCHC 34.1, RDW 13.7, Plt Count 210, MPV 10.4, Gran % 84.1 H, Lymph % (Auto) 10.9 L, [place] % (Auto) 3.8, Eos % (Auto) 1.0 L, Baso % (Auto) 0.2, Gran # 10.70 H , Lymph # (Auto) 1.4, [place] # (Auto) 0.5, Eos # (Auto) 0.1, Baso # (Auto) 0.02 11/11/17 09:00: Blood Type A POSITIVE, Antibody Screen Negative, BBK History Checked Patient has bt I have reviewed the lab results: Yes - RAD Interpretation Radiology Orders: 11/11/17 09:04 ABD 2 VIEWS (FLAT/UP OR DECUB) [RAD] Stat 11/11/17 10:33 ABDOMEN & PELVIS [ABD & PELVIS IV CONTRAST ONLY] [CT] Stat - EKG Interpretation EKG Interpretation (Text): 11/11/17 09:48 0842: sinus rhythm at 61 bpm, nml qrs, nml axis, no acute sttw abn Interpreted by ED Physician: Yes - Medication Orders Current Medication Orders: Sodium Chloride (Sodium Chloride 0.9%) 1,000 mls @ 150 mls/hr IV .Q6H40M NEVAEH Discontinued Medications Morphine Sulfate (Morphine) 4 mg IVP STAT STA Stop: 11/11/17 09:05 Last Admin: 11/11/17 09:24 Dose: 4 mg MAR Pain Assessment Document 11/11/17 09:24 GMD (Rec: 11/11/17 09:24 GMD [id number]) Pain Reassessment Is this a pain reassessment? No Presence of Pain Presence of Pain Yes Pain Scale Used Pain Scale Used Numeric Location Pain Location Body Site Abdomen Description Intensity of Pain at present 6 IVP Administration Document 11/11/17 09:24 GMD (Rec: 11/11/17 09:24 [facility] [id number]) Charges for Administration # of IVP Administrations 1 - Scribe Statement The provider has reviewed the documentation as recorded by the Diandra Robles Provider Scribe Attestation: All medical record entries made by the Diandra were at my direction and personally dictated by me. I have reviewed the chart and agree that the record accurately reflects my personal performance of the history, physical exam, medical decision making, and the department course for this patient. I have also personally directed, reviewed, and agree with the discharge instructions and disposition. Disposition/Present on Arrival - Present on Arrival Any Indicators Present on Arrival: No History of DVT/PE: No History of Uncontrolled Diabetes: No Urinary Catheter: No History Surgical Site Infection Following: None - Disposition Have Diagnosis and Disposition been Completed?: Yes Diagnosis: Small bowel obstruction Disposition: HOSPITALIZED Disposition Time: 13:12 Patient Plan: Admission Patient Problems: Current Active Problems Problem Status Onset Small bowel obstruction Acute Condition: STABLE
[2017-11-11] MEDS ORDERED: Morphine 4 mg/ml ISec IVP STA (09:04)
[2017-11-11 09:33] LABS: BASO # 0.02 K/mm3 (0.0-2.0); BASO % 0.2 % (0.0-3.0); EOS # 0.1 (0.0-0.7); GRAN # 10.7 (1.4-6.5); GRAN % 84.1 % (50.0-68.0); HEMOGLOBIN 14.8 g/dL (14.0-18.0); LYMPH # 1.4 (1.2-3.4); LYMPH % 10.9 % (22.0-35.0); MEAN CELL VOLUME 90.4 fl (80.0-105.0); MEAN CORPUSCULAR HEMOGLOBIN 30.8 pg (25.0-35.0); MEAN CORPUSCULAR HGB CONC 34.1 g/dl (31.0-37.0); MEAN PLATELET VOLUME 10.4 fl (7.0-11.0); MONO # 0.5 (0.1-0.6); MONO % 3.8 % (1.0-6.0); RBC 4.8 10^6/uL (3.5-6.1); RED CELL DISTRIBUTION WIDTH 13.7 % (11.5-14.5); WHITE BLOOD COUNT 12.7 10^3/ul (4.5-11.0)
[2017-11-11 09:43] LABS: INR 0.92; PROTHROMBIN TIME 10.6 SECONDS (9.4-12.5)
[2017-11-11 09:45] LABS: ALB/GLOB RATIO 1.3 (1.1-1.8); ALBUMIN 4.4 g/dL (3.0-4.8); CALCIUM 9.8 mg/dL (8.4-10.5)
--- NOTE | 2017-11-11 10:42 | RAD ---
Date of service: 11/11/2017 HISTORY: upright study, abdominal pain COMPARISON: 02/21/2016 FINDINGS: BOWEL: Normal. No obstruction. No free air. BONES: Normal. OTHER FINDINGS: None. IMPRESSION: No active disease.
--- NOTE | 2017-11-11 11:28 | CT ---
Date of service: 11/11/2017 PROCEDURE: CT Abdomen and Pelvis with contrast HISTORY: pain, obstruction COMPARISON: 09/25/2016 CT TECHNIQUE: Contrast dose: 150 cc of Omni 350 Radiation dose: Total exam DLP = 275 mGy-cm. This CT exam was performed using one or more of the following dose reduction techniques: Automated exposure control, adjustment of the mA and/or kV according to patient size, and/or use of iterative reconstruction technique. FINDINGS: LOWER THORAX: Unremarkable. LIVER: Unremarkable. No gross lesion or ductal dilatation. GALLBLADDER AND BILE DUCTS: Unremarkable. PANCREAS: There is dilatation of the pancreatic duct which measures 5 mm. There is no obstructing mass or stone. The common duct measures 12 mm in diameter. The finding is unchanged SPLEEN: Unremarkable. ADRENALS: Unremarkable. No mass. KIDNEYS AND URETERS: There are some enlarged enhancing vessels around the left renal pelvis and proximal ureter. The significance of this is uncertain. The finding is unchanged VASCULATURE: Unremarkable. No aortic aneurysm. BOWEL: Multiple fluid-filled dilated loops of small bowel are seen throughout the abdomen. The transition point is seen in the right lower quadrant. Findings are consistent with partial small bowel obstruction probably due to adhesions. The transition point is best seen on sagittal image 42. APPENDIX: Normal appendix. PERITONEUM: Unremarkable. No free fluid. No free air. LYMPH NODES: Unremarkable. No enlarged lymph nodes. BLADDER: Unremarkable. REPRODUCTIVE: Unremarkable. BONES: No acute fracture. OTHER FINDINGS: None. IMPRESSION: Multiple fluid-filled dilated loops of small bowel are seen throughout the abdomen. The transition point is seen in the right lower quadrant. Findings are consistent with partial small bowel obstruction probably due to adhesions.
[2017-11-11] MEDS ORDERED: Sodium Chloride 0.9% 1,000 ML IV SCH (12:00)
[2017-11-11 12:18] LABS: URINE BILIRUBIN NEGATIVE (NEGATIVE); URINE BLOOD TRACE-LYSED (NEGATIVE); URINE GLUCOSE (UA) NEGATIVE (NEGATIVE); URINE LEUKOCYTE ESTERASE NEGATIVE Leu/uL (NEGATIVE); URINE PROTEIN 30 mg/dL (<30 mg/dL); URINE UROBILINOGEN 0.2 E.U./dL (<1 E.U./dL)
[2017-11-11 12:40] LABS: URINE APPEARANCE CLEAR (CLEAR); URINE COLOR YELLOW (YELLOW)
[2017-11-11 12:46] LABS: URINE BACTERIA FEW (NEG); URINE WBC 0 - 2 /hpf (0-6)
--- NOTE | 2017-11-11 13:25 | CP.PCM.CON ---
History of Present Illness - History of Present Illness History of Present Illness: Surgery Consult Note for Dr. Antonio 82M with a PMH of stroke (2012), cholecystectomy, appendectomy, and recurrent bowel obstruction presents complaining of abdominal pain. He states the onset was early this morning at 3AM following a large BM. He reports being constipated , having no BMs for 3 days prior to the large BM this morning. The BM was described as soft and "normal" appearing, without blood. He describes the pain as constant, 7/10, located in the center of the abdomen without radiation, improved s/p pain medication in ED. He admits to 4-5 prior episodes of bowel obstruction, and states that the pain is similar. He also states that he had an NG tube placed in the past for SBO, which relieved his symptoms. He denies fever , chills, headache, chest pain, SOB, nausea or vomiting. PMH: HTN, DM, stroke (2012) Surg Hx: cholecystectomy, appendectomy; hx EGD and colonoscopy in September 2016 with polyps removed non-cancerous Medications: Metformin 500mg daily, Valsartan, Aspirin 81mg daily Allergy: NKDA Family Hx: HTN; denies hx colon or breast ca Social Hx: denies smoking, drinks small glass of wine daily, has puree diet at home PMD: Dr. Cha Primary surgeon: Dr. Antonio Review of Systems - Constitutional Constitutional: absent: Chills, Fever, Headache - Cardiovascular Cardiovascular: absent: Chest Pain, Dyspnea, Edema - Respiratory Respiratory: absent: Cough, Wheezing - Gastrointestinal Gastrointestinal: Abdominal Pain, Constipation. absent: Change in Stool Character, Diarrhea, Hematochezia, Melena, Nausea, Vomiting - Genitourinary Genitourinary: absent: Difficulty Urinating, Dysuria, Flank Pain - Musculoskeletal Musculoskeletal: absent: Back Pain, Myalgias, Numbness - Neurological Additional comments: slowed speech s/p stroke Past Patient History - Infectious Disease Hx of Infectious Diseases: None - Tetanus Immunizations Tetanus Immunization: Unknown - Past Social History Smoking Status: Never Smoked - CARDIAC Hx Pacemaker: No - PULMONARY Hx Respiratory Disorders: No - NEUROLOGICAL Hx Paralysis: No - HEENT Hx HEENT Problems: Yes (WEARS RX GLASSES FOR READING) Hx Cataracts: Yes (BILATERAL SURGERY) - RENAL Hx Chronic Kidney Disease: No - ENDOCRINE/METABOLIC Hx Diabetes Mellitus Type 2: Yes - HEMATOLOGICAL/ONCOLOGICAL Hx Blood Transfusions: No Hx Blood Transfusion Reaction: No - INTEGUMENTARY Hx Dermatological Problems: No - MUSCULOSKELETAL/RHEUMATOLOGICAL Hx Musculoskeletal Disorders: Yes (SCIATICA) - GASTROINTESTINAL Hx Gastrointestinal Disorders: Yes (APPENDECTOMY(RUPTURED APPENDIX)) Hx Gall Bladder Disease: Yes (CHOLELITHIASIS) Other/Comment: Bowel obstruction - GENITOURINARY/GYNECOLOGICAL Hx Genitourinary Disorders: Yes Hx Prostate Problems: Yes - PSYCHIATRIC Hx Emotional Abuse: No Hx Physical Abuse: No Hx Substance Use: No - SURGICAL HISTORY Hx Appendectomy: Yes Hx Cholecystectomy: Yes - ANESTHESIA Hx Anesthesia Reactions: No Hx Malignant Hyperthermia: No Meds Allergies/Adverse Reactions: Allergies Allergy/AdvReac Type Severity Reaction Status Date / Time No Known Allergies Allergy Verified 11/11/17 13:30 - Medications Medications: Current Medications Sodium Chloride (Sodium Chloride 0.9%) 1,000 mls @ 150 mls/hr IV .Q6H40M [facility] Last Admin: 11/11/17 13:20 Dose: 150 mls/hr Physical Exam - Constitutional Appears: Well, Non-toxic, No Acute Distress - Head Exam Head Exam: ATRAUMATIC, NORMAL INSPECTION, NORMOCEPHALIC - Eye Exam Eye Exam: EOMI, PERRL. absent: Scleral icterus Pupil Exam: PERRL - ENT Exam ENT Exam: Mucous Membranes Moist, Normal Exam, Normal Oropharynx - Neck Exam Neck exam: Positive for: Normal Inspection - Respiratory Exam Respiratory Exam: Clear to Auscultation Bilateral, NORMAL BREATHING PATTERN. absent: Rales, Rhonchi, Wheezes - Cardiovascular Exam Cardiovascular Exam: REGULAR RHYTHM, +S1, +S2. absent: Systolic Murmur - GI/Abdominal Exam GI & Abdominal Exam: Distended, Hypoactive Bowel Sounds, Soft. absent: Guarding , Rebound, Tenderness Additional comments: Abdomen tympanic - Extremities Exam Extremities exam: Positive for: full ROM, normal inspection, pedal pulses present. Negative for: joint swelling, tenderness - Back Exam Back exam: NORMAL INSPECTION. absent: CVA tenderness (L), CVA tenderness (R) - Neurological Exam Neurological exam: Alert, CN II-XII Intact, Oriented x3 - Skin Skin Exam: Dry, Intact, Normal Color, Warm Results - Vital Signs Recent Vital Signs: Last Vital Signs Temp 98.2 F 11/11/17 08:42 Pulse 65 11/11/17 11:31 Resp 18 11/11/17 11:31 BP 140/76 11/11/17 11:31 Pulse Ox 99 11/11/17 11:31 - Labs Result Diagrams: 11/11/17 09:09 11/11/17 09:09 Labs: Laboratory Results - last 24 hr 11/11/17 11/11/17 11/11/17 09:00 09:09 09:09 WBC 12.7 H D RBC 4.80 Hgb 14.8 Hct 43.4 MCV 90.4 MCH 30.8 MCHC 34.1 RDW 13.7 Plt Count 210 MPV 10.4 Gran % 84.1 H Lymph % (Auto) 10.9 L [place] % (Auto) 3.8 Eos % (Auto) 1.0 L Baso % (Auto) 0.2 Gran # 10.70 H Lymph # (Auto) 1.4 [place] # (Auto) 0.5 Eos # (Auto) 0.1 Baso # (Auto) 0.02 PT INR APTT Sodium 139 Potassium 4.7 Chloride 103 Carbon Dioxide 24 Anion Gap 17 BUN 29 H Creatinine 1.4 Est GFR ( Amer) 59 Est GFR (Non-Af Amer) 49 Random Glucose 120 H Calcium 9.8 Total Bilirubin 0.7 AST 37 ALT 31 Alkaline Phosphatase 42 Total Protein 7.8 Albumin 4.4 Globulin 3.4 Albumin/Globulin Ratio 1.3 Lipase 203 Urine Color Urine Appearance Urine pH Ur Specific [place] Urine Protein Urine Glucose (UA) Urine Ketones Urine Blood Urine Nitrate Urine Bilirubin Urine Urobilinogen Ur Leukocyte Esterase Urine RBC Urine WBC Ur Epithelial Cells Urine Bacteria Blood Type A POSITIVE Antibody Screen Negative BBK History Checked Patient has bt 11/11/17 11/11/17 09:09 12:00 WBC RBC Hgb Hct MCV MCH MCHC RDW Plt Count MPV Gran % Lymph % (Auto) [place] % (Auto) Eos % (Auto) Baso % (Auto) Gran # Lymph # (Auto) [place] # (Auto) Eos # (Auto) Baso # (Auto) PT 10.6 INR 0.92 APTT 34.0 Sodium Potassium Chloride Carbon Dioxide Anion Gap BUN Creatinine Est GFR ( Amer) Est GFR (Non-Af Amer) Random Glucose Calcium Total Bilirubin AST ALT Alkaline Phosphatase Total Protein Albumin Globulin Albumin/Globulin Ratio Lipase Urine Color Yellow Urine Appearance Clear Urine pH 8.0 Ur Specific [place] <= 1.005 Urine Protein 30 H Urine Glucose (UA) Negative Urine Ketones Trace H Urine Blood Trace-lysed H Urine Nitrate Negative Urine Bilirubin Negative Urine Urobilinogen 0.2 Ur Leukocyte Esterase Negative Urine RBC 2 - 5 Urine WBC 0 - 2 Ur Epithelial Cells None Urine Bacteria Few Blood Type Antibody Screen BBK History Checked Assessment & Plan - Assessment and Plan (Free Text) Assessment: 82M with H stroke (2012), cholecystectomy, appendectomy, recurrent bowel obstruction, presenting with abdominal pain. Partial small bowel obstruction noted on CT scan. Plan: -NPO -Pain control -Continue to monitor, pt hemodynamically stable at this time -WBC 12.7 -No need for NG tube placement at this time -No acute surgical intervention needed at this time -Further recs per Dr. Paco Jett, PGY-1
[2017-11-11] MEDS ORDERED: Morphine 2 mg/ml ISec IVP PRN (15:06)
[2017-11-11] MEDS: Lactated Ringer's 1,000 ML IV SCH (15:20)
[2017-11-11] MEDS ORDERED: Pneumococcal 23-Valent Vaccine IM ONE (16:56)
[2017-11-11] MEDS ORDERED: Benzocaine/Menthol (Cepacol) Lozenge MT PRN (16:59)
--- NOTE | 2017-11-11 19:20 | CARD ---
APPROVED REPORT Date of service: 11/11/2017 EKG Measurement Heart [id number] <Conclusion> Sinus rhythm with marked sinus arrhythmia Otherwise normal ECG
[2017-11-11] MEDS ORDERED: Dextrose 50% SYRINGE Inj (50 ml) IV PRN (23:47)
[2017-11-12] MEDS: Lactated Ringer's 1,000 ML IV SCH ×2 (00:01→23:45)
[2017-11-12 06:50] LABS: BASO # 0.02 K/mm3 (0.0-2.0); BASO % 0.3 % (0.0-3.0); EOS # 0.6 (0.0-0.7); EOS % 9.1 % (1.5-5.0); GRAN # 4.5 (1.4-6.5); GRAN % 64.8 % (50.0-68.0); HEMOGLOBIN 13.3 g/dL (14.0-18.0); LYMPH # 1.4 (1.2-3.4); LYMPH % 20.3 % (22.0-35.0); MEAN CELL VOLUME 90.8 fl (80.0-105.0); MEAN PLATELET VOLUME 11.2 fl (7.0-11.0); MONO # 0.4 (0.1-0.6); MONO % 5.5 % (1.0-6.0); RBC 4.44 10^6/uL (3.5-6.1); RED CELL DISTRIBUTION WIDTH 13.9 % (11.5-14.5); WHITE BLOOD COUNT 6.9 10^3/ul (4.5-11.0)
[2017-11-12 06:59] LABS: ALB/GLOB RATIO 1.2 (1.1-1.8); ALBUMIN 3.3 g/dL (3.0-4.8); ALT/SGPT 31 U/L (7-56); AST/SGOT 40 U/L (17-59); BLOOD UREA NITROGEN 19 mg/dL (7-21); CALCIUM 8.8 mg/dL (8.4-10.5); GFR NON-AFRICAN AMERICAN > 60
[2017-11-12] MEDS: Insulin Lispro (humaLOG) LOW Coverage SC SCH ×4 (07:54→23:44)
--- NOTE | 2017-11-12 08:44 | CP.PCM.PN ---
Subjective - Date & Time of Evaluation Date of Evaluation: 11/12/17 Time of Evaluation: 07:20 - Subjective Subjective: Surgery Progress Note for Dr. Antonio Pt seen and examined at bedside. Denies abdominal pain currently, states pain medication is helping. No acute events reported overnight. Denies BM or passing flatus since admission. Objective - Vital Signs/Intake and Output Vital Signs (last 24 hours): Temp Pulse Resp BP Pulse Ox 98.3 F 59 L 20 150/76 96 11/12/17 06:00 11/12/17 06:00 11/12/17 06:00 11/12/17 06:00 11/12/17 06:00 Intake and Output: 11/12/17 11/12/17 06:59 18:59 Intake Total 1500 Output Total 1300 Balance 200 - Medications Medications: Current Medications Benzocaine/Menthol (Cepacol Sore Throat) 1 jorge MT Q4H PRN PRN Reason: Sore Throat Last Admin: 11/11/17 18:00 Dose: 1 jorge Dextrose (Dextrose 50% Inj) 0 ml IV STAT PRN; Protocol PRN Reason: Hypoglycemia Protocol Lactated Ringer's (Lactated Ringer's) 1,000 mls @ 100 mls/hr IV .Q10H NEVAEH Last Admin: 11/12/17 00:01 Dose: 100 mls/hr Dextrose (Dextrose 5% In Water 1000 Ml) 1,000 mls @ 0 mls/hr IV .Q0M PRN; Protocol; Per Protocol PRN Reason: Hypoglycemia Protocol Insulin Human Lispro (Humalog Low) 0 units SC ACHS NEVAEH PRN Reason: Protocol Last Admin: 11/12/17 07:54 Dose: Not Given Losartan Potassium (Cozaar) 12.5 mg PO DAILY [facility] Morphine Sulfate (Morphine) 2 mg IVP Q4H PRN PRN Reason: Pain, moderate (4-7) Ondansetron HCl (Zofran Inj) 4 mg IVP Q4H PRN PRN Reason: Nausea/Vomiting - Labs Labs: 11/12/17 05:45 11/12/17 05:45 PT 10.6 SECONDS (9.4-12.5) 11/11/17 09:09 INR 0.92 11/11/17 09:09 APTT 34.0 Seconds (25.1-36.5) 11/11/17 09:09 - Head Exam Head Exam: ATRAUMATIC, NORMAL INSPECTION - Eye Exam Eye Exam: EOMI, Normal appearance, PERRL - ENT Exam ENT Exam: Mucous Membranes Moist - Respiratory Exam Respiratory Exam: Clear to Ausculation Bilateral, NORMAL BREATHING PATTERN - Cardiovascular Exam Cardiovascular Exam: REGULAR RHYTHM, +S1, +S2 - GI/Abdominal Exam GI & Abdominal Exam: Soft, Normal Bowel Sounds - Extremities Exam Extremities Exam: Full ROM, Normal Capillary Refill, Normal Inspection - Neurological Exam Neurological Exam: Alert, Awake, CN II-XII Intact, Oriented x3 - Skin Skin Exam: Dry, Intact, Normal Color, Warm Assessment and Plan - Assessment and Plan (Free Text) Assessment: 82M with H stroke (2012), cholecystectomy, appendectomy, recurrent bowel obstruction, presenting with abdominal pain. Partial small bowel obstruction noted on CT scan. Plan: -NPO -Pain control -Continue to monitor, pt hemodynamically stable at this time -No leukocytosis this am -No need for NG tube placement at this time -No acute surgical intervention needed at this time -Encourage ambulation -F/u small bowel series -Further recs per Dr. Paco Jett, DO PGY-1
[2017-11-12] MEDS ORDERED: Barium Sulfate for Susp 96% w/w 176g Bottle PR ONE (09:21)
--- NOTE | 2017-11-12 10:10 | HP ---
Copied To: Phill Cha DO Attending MD: Phill Cha DO HISTORY OF PRESENT ILLNESS: I know him very well from the office for many years and also for multiple small-bowel obstructions. He is an 82-year-old man who after having a bowel movement began having severe abdominal pain. He knows that pain he has had it many times before. He has not been in the emergency room and again he is having a partial small bowel obstruction secondary to adhesions. PAST MEDICAL HISTORY: He has a past medical history of multiple small-bowel obstructions, diabetes type 2, appendectomy, cholecystectomy. He has had sciatica in the past. He wears glasses. He had bilateral cataract surgery. He is a diabetic. He has had sciatica. He has had appendectomy, ruptured appendix, cholecystitis, bowel obstructions, prostate problems. FAMILY HISTORY: No known family history. SOCIAL HISTORY: No smoking. Does have red wine after dinner. No substance abuse. ALLERGIES: NO KNOWN DRUG ALLERGIES. MEDICATIONS: He is on Diovan of hypertension, Glucophage for diabetes, Ecotrin, omega-3 fatty acids, CoQ10, MiraLax for constipation, Cozaar for hypertension. REVIEW OF SYSTEMS: No fevers. He has severe abdominal pain, status post bowel movement. No diarrhea, nausea, vomiting. PHYSICAL EXAMINATION: GENERAL: He is alert, well-developed, well-nourished. He is in distress. He needs medication for pain, which helps him. He is well appearing, but he is uncomfortable with severe abdominal pain. Alert and oriented x3. HEENT: Extraocular muscles are intact. Pupils equal, reactive to light. NECK: Supple. No JVD. No adenopathy palpated. Thyroid midline. HEART: Regular rate. Normal S1, S2. LUNGS: Decreased breath sounds. No wheezes, rhonchi or rales. ABDOMEN: Decreased bowel sounds. There is mild guarding. No rebound. No rigidity. Diffuse tenderness everywhere. Very much decreased bowel sounds. SKIN: Good color. Good turgor. No apparent rashes or ulcers. NEUROLOGIC: He is alert and oriented x3. Cranial nerves II through XII grossly intact. He has motor intact. VITAL SIGNS: He has a 98.5 temp, 65 pulse, 16 respiratory rate, 152/76 blood pressure, 99% O2 sat on room air. LABORATORY DATA: He had multiple tests done. He has a 141 sodium now, 4.2 potassium. BUN is 19, creatinine 1.4, it was 29 and 1.4 when he came in, now it is 19 and 1.1. IV fluids are helping. GFR is up to 60, sugar is 87, calcium is 8.8, total bili is 1, AST is 40, ALT is 31, alk phos 39, total protein 6.2, lipase is 203. INR is 0.92. Urine was few. His white count when he came in was 12.7, it is down to 6.9; hemoglobin 13.3, hematocrit 40.3, platelets are 195. The x-ray of the abdomen was fine, but the abdominopelvic CAT scan showed partial small bowel obstruction secondary to adhesions. IMPRESSION: Surgery had seen the patient once. They said no surgery at this time. He is n.p.o., IV fluids, pain medications and hopefully he will walk a little bit to get the bowels moving and he is in bed, saying that he needs the pain medications to get him through. Omer Simeon who has got partial small bowel obstruction again with abdominal pain. Phill Cha DO
[2017-11-12] MEDS ORDERED: POLYETHYLENE GLYCOL 3350 17 GM/Dose PACKET PO ONE (11:24)
--- NOTE | 2017-11-12 13:00 | RAD ---
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 The small bowel is normal in caliber. There is no mucosal fold thickening or inflammatory change. Contrast reaches the colon at 3 hours IMPRESSION: Negative study
[2017-11-12 20:03] VITALS: RESP 18
[2017-11-13 06:53] LABS: ALB/GLOB RATIO 1.2 (1.1-1.8); ALBUMIN 3.9 g/dL (3.0-4.8); ALT/SGPT 26 U/L (7-56); AST/SGOT 41 U/L (17-59); BLOOD UREA NITROGEN 13 mg/dL (7-21); CALCIUM 9.3 mg/dL (8.4-10.5); GFR NON-AFRICAN AMERICAN > 60
[2017-11-13 06:57] LABS: HEMOGLOBIN 15.2 g/dL (14.0-18.0); MEAN CORPUSCULAR HEMOGLOBIN 30.5 pg (25.0-35.0); MEAN CORPUSCULAR HGB CONC 33.9 g/dl (31.0-37.0); RBC 4.99 10^6/uL (3.5-6.1); RED CELL DISTRIBUTION WIDTH 13.6 % (11.5-14.5); WHITE BLOOD COUNT 6.8 10^3/ul (4.5-11.0)
[2017-11-13 07:30] VITALS: PULSE 60; TEMP 98; O2SAT 97
--- NOTE | 2017-11-13 08:07 | CP.PCM.PN ---
Subjective - Date & Time of Evaluation Date of Evaluation: 11/13/17 Time of Evaluation: 08:04 - Subjective Subjective: Surgery: Dr. Antonio Pt seen and examined. No acute overnight events. States he's feeling well this morning. Pt admits to flatus and BMs yesterday & is tolerating CLD. He denies any more abdominal pain, nausea/vomiting, fevers or chills. Objective - Vital Signs/Intake and Output Vital Signs (last 24 hours): Temp Pulse Resp BP Pulse Ox 98 F 60 18 158/71 H 97 11/13/17 06:00 11/13/17 06:00 11/13/17 06:00 11/13/17 06:00 11/13/17 06:00 Intake and Output: 11/13/17 11/13/17 06:59 18:59 Intake Total 120 Balance 120 - Medications Medications: Current Medications Benzocaine/Menthol (Cepacol Sore Throat) 1 jorge MT Q4H PRN PRN Reason: Sore Throat Last Admin: 11/11/17 18:00 Dose: 1 jorge Dextrose (Dextrose 50% Inj) 0 ml IV STAT PRN; Protocol PRN Reason: Hypoglycemia Protocol Lactated Ringer's (Lactated Ringer's) 1,000 mls @ 100 mls/hr IV .Q10H NEVAEH Last Admin: 11/12/17 23:45 Dose: 100 mls/hr Dextrose (Dextrose 5% In Water 1000 Ml) 1,000 mls @ 0 mls/hr IV .Q0M PRN; Protocol; Per Protocol PRN Reason: Hypoglycemia Protocol Insulin Human Lispro (Humalog Low) 0 units SC ACHS NEVAEH PRN Reason: Protocol Last Admin: 11/12/17 23:44 Dose: Not Given Losartan Potassium (Cozaar) 12.5 mg PO DAILY NEVAEH Last Admin: 11/12/17 09:00 Dose: 12.5 mg Losartan Potassium (Cozaar) 25 mg PO DAILY [facility] Morphine Sulfate (Morphine) 2 mg IVP Q4H PRN PRN Reason: Pain, moderate (4-7) Ondansetron HCl (Zofran Inj) 4 mg IVP Q4H PRN PRN Reason: Nausea/Vomiting - Labs Labs: 11/13/17 06:00 11/13/17 06:00 PT 10.6 SECONDS (9.4-12.5) 11/11/17 09:09 INR 0.92 11/11/17 09:09 APTT 34.0 Seconds (25.1-36.5) 11/11/17 09:09 - Constitutional Appears: Well, No Acute Distress - Head Exam Head Exam: ATRAUMATIC, NORMOCEPHALIC - Eye Exam Eye Exam: Normal appearance - ENT Exam ENT Exam: Mucous Membranes Moist - Respiratory Exam Respiratory Exam: NORMAL BREATHING PATTERN - GI/Abdominal Exam GI & Abdominal Exam: Soft. absent: Distended, Guarding, Tenderness, Rebound - Neurological Exam Neurological Exam: Alert, Awake, Oriented x3 - Skin Skin Exam: Dry, Warm Assessment and Plan - Assessment and Plan (Free Text) Assessment: 82M with partial SBO; resolved Plan: - advance to soft diet; if tolerating ok to DC from surgical standpoint - d/w Dr. Paco Bourgeois
[2017-11-13] MEDS: Insulin Lispro (humaLOG) LOW Coverage SC SCH ×2 (08:12→11:46)
[2017-11-13 10:05] VITALS: BP 158/70
--- NOTE | 2017-11-13 14:47 | DS ---
Copied To: Phill Cha DO Attending MD: Phill Cha DO HISTORY OF PRESENT ILLNESS: He had 2 bowel movements in the last 12-14 hours. He was here for small bowel obstruction. He is actually much better. No abdominal pain. He is eating up a storm. He is passing gas and I think this small bowel obstruction has resolved. He is in good spirits. PHYSICAL EXAMINATION: VITAL SIGNS: He has a 98 temp, 60 pulse, 158/70 blood pressure, 18 respiratory rate, 97% sat on room air. HEENT: His head is atraumatic, normocephalic. HEART: Regular rate. LUNGS: Clear to auscultation. ABDOMEN: Soft, nontender. Positive bowel sounds. No guarding, no rebound, no CVA tenderness. Back to normal. EXTREMITIES: Okay. MEDICATIONS: He is currently on Cepacol, Cozaar, dextrose, insulin, lactated Ringer's, morphine and Zofran. LABORATORY DATA: He has a white count of 6.8, hemoglobin 15.2, hematocrit 44.9, platelets of 194. He has a 144 sodium, potassium 4.2, BUN 13, creatinine 1, GFR is greater than 60, sugar is 83, calcium is 9.3, total bili is 1, AST is 41, ALT is 26, alk phos 47, total protein 7.1, albumin is 3.9. ASSESSMENT AND PLAN: He will be discharged today if okay with surgery. I have discussed with him a few things plus his was in the room. He has to eat no bananas, rice, applesauce or toast, the only things that constipate him. He is to keep a very good blood sugar very good low sugar diet. I want to see him in the office next week. He is going to go home on his regular medications that he takes before he got here, metformin, he switched to Cozaar from Diovan, CoQ10, MiraLax twice a day, omega and Ecotrin. He did well. He had a small bowel obstruction, diabetes, abdominal pain. Phill Cha DO WILLIE
== END 2017-11-13 13:46 | disposition home or self-care (01) | DRG 390 ==
LOC: ED 08:28 → ERH 13:12 → 5RNO 14:40
PROVIDERS: ADMIT Family Medicine; ATTEND Family Medicine
DX: K56.51 Intestinal adhesions [bands], with partial obstruction (principal); E11.9 Type 2 diabetes mellitus without complications; I10 Essential (primary) hypertension; Z86.73 Personal history of transient ischemic attack (TIA), and cerebral infarction without residual deficits; Z90.49 Acquired absence of other specified parts of digestive tract; Z86.010 Personal history of colon polyps